=== PATIENT | female | born 1970 | race Caucasian/White ===

== ENCOUNTER 2017-11-19 19:15 | Inpatient (IN) | payer MEDICAID ==
[~2017-11-19] VITALS: Ht 153 cm; Wt 93.1 kg
[~2017-11-19 19:15] MED LIST: ALB0.5UD IH; ALBU8HFA PO; ATOR40TA PO; ATOR40TA72 PO; CLON0.1T20 PO; ESCI10TA PO; ESCI20TA38 PO; INSU100V36 SQ; LANTUS SUBCUT; METR500T PO; SITA100T11 PO; SITA100T15 PO; VALS40TA2 PO
[2017-11-19] MEDS ORDERED: aspirin 81mg tab.chew PO ONE (19:25)
[2017-11-19] MEDS ORDERED: nitroGLYCERIN 0.4mg SUBLingual tab SL PRN (19:25)
[2017-11-19] MEDS ORDERED: nitroGLYCERIN 1gm ointment UD TP ONE (20:00)
[2017-11-19] MEDS ORDERED: VARE0.5T PO (20:55)
[2017-11-19] MEDS ORDERED: NORT10CA81 PO (20:55)
[2017-11-19] MEDS ORDERED: OMEP20CA10 PO (20:55)
[2017-11-19] MEDS ORDERED: LINA5TAB4 PO (20:55)
[2017-11-19] MEDS ORDERED: GLIP5TAB13 PO (20:55)
[2017-11-19] MEDS ORDERED: INSU100I31 (20:55)
[2017-11-19] MEDS ORDERED: LOSA25TA96 PO (20:55)
[2017-11-19] MEDS ORDERED: normal saline 1000ml 1,000 ML IV SCH (21:26)
[2017-11-19 21:30] LABS: BASOPHILS # (AUTO) 0.1 X10'3 (0-0.2); BASOPHILS % (AUTO) 0.4 % (0-1); EOSINOPHILS # (AUTO) 1.2 X10'3 (0-0.9); EOSINOPHILS % (AUTO) 10.1 % (0-6); HEMATOCRIT 36.4 % (35.0-45.0); HEMOGLOBIN 12.4 g/dl (12.0-16.0); LYMPHOCYTES # (AUTO) 3.7 X10'3 (1.1-4.8); MEAN CORPUSCULAR HEMOGLOBIN 29.9 PG (27.0-31.0); MEAN CORPUSCULAR HGB CONC 34.1 % (33.0-36.5); MEAN CORPUSCULAR VOLUME 87.6 FL (78-98); MEAN PLATELET VOLUME 7.4 FL (7.4-10.4); MONOCYTES # (AUTO) 0.7 X10'3 (0-0.9); MONOCYTES % (AUTO) 5.6 % (2-12); NEUTROPHILS # (AUTO) 6.6 X10'3 (1.8-7.7); NEUTROPHILS % (AUTO) 53.9 % (42-75); PLATELET COUNT 295 X10'3 (140-440); RED BLOOD COUNT 4.15 X10'6 (4.20-5.60); RED CELL DISTRIBUTION WIDTH 13.2 % (11.5-14.5); WHITE BLOOD COUNT 12.2 X10'3 (4.5-11.0)
[2017-11-19] MEDS ORDERED: diphenhydrAMINE 25mg capsule PO PRN (21:30)
[2017-11-19] MEDS ORDERED: mag hydrox/Alum hydrox/simeth 30ml oral suspension PO PRN (21:30)
[2017-11-19] MEDS: varenicline tartrate 0.5mg tablet PO SCH (21:30)
[2017-11-19] MEDS ORDERED: diphenhydrAMINE 50 mg/ml inj IV PRN (21:30)
[2017-11-19] MEDS ORDERED: magnesium hydroxide 30ml (MOM) UD suspension PO PRN (21:30)
[2017-11-19] MEDS ORDERED: bisacodyl 10mg suppository rectal RC PRN (21:30)
[2017-11-19] MEDS ORDERED: acetaminophen 325mg tablet PO PRN (21:30)
[2017-11-19] MEDS ORDERED: acetaminophen 650mg rectal suppository RC PRN (21:30)
[2017-11-19] MEDS ORDERED: HYDROcodone/acetaminophen 5mg/325mg tablet PO PRN (21:30)
[2017-11-19] MEDS ORDERED: morphine sulfate 8 MG/ML SYRINGE IV PRN (21:30)
[2017-11-19] MEDS: HYDROcodone/acetaminophen 10/325mg tab PO PRN (21:46)
[2017-11-19 21:47] LABS: ALANINE AMINOTRANSFERASE 21 U/L (12-78); ALBUMIN 2.9 G/DL (3.4-5.0); ALBUMIN/GLOBULIN RATIO 0.7 (1.1-1.5); ALKALINE PHOSPHATASE 92 IU/L (46-116); ANION GAP 8 (8-16); ASPARTATE AMINO TRANSFERASE 16 U/L (10-37); BILIRUBIN,TOTAL 0.3 MG/DL (0.1-1.0); BLOOD UREA NITROGEN 33 MG/DL (7-18); BUN/CREATININE RATIO 21.3 (6.6-38.0); CALCIUM 9.5 MG/DL (8.5-10.1); CHLORIDE 106 MMOL/L (99-107); CREATININE 1.55 MG/DL (0.40-0.90); D-DIMER 3.29 MG/L FEU (0-0.50); GLUCOSE 139 MG/DL (70-104); INR 0.9 INR; PARTIAL THROMBOPLASTIN TIME 25 SECONDS (22-32); POTASSIUM 5.2 MMOL/L (3.5-5.1); PROTHROMBIN TIME 9.5 SECONDS (9.0-12.0); SODIUM 140 MMOL/L (135-145); TOTAL CARBON DIOXIDE 25.8 MMOL/L (24-32); TOTAL PROTEIN 6.9 G/DL (6.4-8.2); eGFR 36 ML/MIN
[2017-11-19 21:56] LABS: LIPASE 92 U/L (73-393)
[2017-11-19] MEDS: morphine sulfate 8 MG/ML SYRINGE IV PRN (22:40)
[2017-11-19] MEDS: atorvastatin 20mg tablet PO SCH (22:41)
[2017-11-19 22:45] VITALS: BP 181/85
[2017-11-19 22:53] LABS: CLARITY,URINE CLEAR (Clear); COLOR,URINE STRAW (Yellow); GLUCOSE, URINE 100 mg/dl (Neg); KETONES,URINE NEGATIVE (Neg); LEUKOCYTE ESTERASE ,URINE NEGATIVE (Neg); NITRITES, URINE NEGATIVE (Neg); OCCULT BLOOD,URINE SMALL (Neg); PROTEIN,URINE >=300 mg/dl (Neg); UROBILINOGEN,URINE 0.2 E.U/dL (0.2-1.0)
[2017-11-19 23:00] VITALS: BP 200/107
[2017-11-19 23:01] LABS: UA COLLECTION TYPE CLN CATCH MIDSTREAM
[2017-11-19 23:02] LABS: SQUAMOUS EPITHELIAL CELL,UR MANY /LPF (FEW)
[2017-11-19 23:04] LABS: HYALINE CASTS 0-3 /LPF (NEGATIVE)
[2017-11-19] MEDS ORDERED: cloNIDine 0.1 mg tablet PO ONE (23:05)
[2017-11-19] MEDS ORDERED: losartan 50mg tablet PO ONE (23:05)
[2017-11-19 23:07] LABS: AMORPHOUS URATES 1+; BACTERIA,URINE 2+ /HPF (Neg); RBC,URINE 0-2 /HPF (0-2); WBC,URINE 0-4 /HPF (0-4)
[2017-11-20] MEDS ORDERED: heparin, porcine 5000 units/ml vial SQ SCH
[2017-11-20] MEDS: morphine sulfate 8 MG/ML SYRINGE IV PRN (02:22)
[2017-11-20 03:07] VITALS: BP 154/79
[2017-11-20 04:22] LABS: BASOPHILS % (AUTO) 0.5 % (0-1); EOSINOPHILS # (AUTO) 1.1 X10'3 (0-0.9); EOSINOPHILS % (AUTO) 11.4 % (0-6); HEMATOCRIT 31.7 % (35.0-45.0); HEMOGLOBIN 10.7 g/dl (12.0-16.0); LYMPHOCYTES # (AUTO) 3.1 X10'3 (1.1-4.8); LYMPHOCYTES % (AUTO) 32.5 % (21-51); MEAN CORPUSCULAR HEMOGLOBIN 29.7 PG (27.0-31.0); MEAN CORPUSCULAR HGB CONC 33.8 % (33.0-36.5); MEAN PLATELET VOLUME 7.5 FL (7.4-10.4); MONOCYTES # (AUTO) 0.6 X10'3 (0-0.9); NEUTROPHILS # (AUTO) 4.7 X10'3 (1.8-7.7); NEUTROPHILS % (AUTO) 49.6 % (42-75); PLATELET COUNT 280 X10'3 (140-440); RED CELL DISTRIBUTION WIDTH 12.9 % (11.5-14.5); WHITE BLOOD COUNT 9.5 X10'3 (4.5-11.0)
[2017-11-20 04:37] LABS: ALANINE AMINOTRANSFERASE 17 U/L (12-78); ALBUMIN 2.6 G/DL (3.4-5.0); ALBUMIN/GLOBULIN RATIO 0.7 (1.1-1.5); ALKALINE PHOSPHATASE 87 IU/L (46-116); ANION GAP 8 (8-16); ASPARTATE AMINO TRANSFERASE 12 U/L (10-37); BILIRUBIN,TOTAL 0.4 MG/DL (0.1-1.0); BLOOD UREA NITROGEN 33 MG/DL (7-18); BUN/CREATININE RATIO 21.7 (6.6-38.0); CHLORIDE 107 MMOL/L (99-107); CREATININE 1.52 MG/DL (0.40-0.90); GLUCOSE 153 MG/DL (70-104); POTASSIUM 4.9 MMOL/L (3.5-5.1); SODIUM 140 MMOL/L (135-145); TOTAL CARBON DIOXIDE 25.3 MMOL/L (24-32); TOTAL PROTEIN 6.1 G/DL (6.4-8.2); eGFR 37 ML/MIN
[2017-11-20 04:45] LABS: CHOL/HDL RATIO 3.3 (0.00-4.99); CHOLESTEROL 197 MG/DL (0-200); HDL CHOLESTEROL 60 MG/DL (35-60); LDL CHOLESTEROL 106 MG/DL (50-100); TRIGLYCERIDES 235 MG/DL (20-135)
[2017-11-20] MEDS: metoclopramide 5 mg/ml inj IV PRN (04:57)
[2017-11-20] MEDS: HYDROcodone/acetaminophen 10/325mg tab PO PRN (04:57)
[2017-11-20] MEDS ORDERED: aminophylline 250mg/10ml inj. IV PRN (05:45)
[2017-11-20] MEDS ORDERED: metoprolol tartrate 1mg/ml inj IV PRN (05:45)
[2017-11-20] MEDS ORDERED: regadenoson 0.4mg/5ml syringe IV ONE (05:45)
[2017-11-20] MEDS ORDERED: nitroGLYCERIN 0.4mg SUBLingual tab SL PRN (05:45)
[2017-11-20 06:00] VITALS: BP 169/75
[2017-11-20] MEDS: citalopram 20mg tablet PO SCH (07:31)
[2017-11-20] MEDS: aspirin 81mg tab.chew PO SCH (07:32)
[2017-11-20] MEDS: metoprolol tartrate 12.5mg (1/2 tablet) PO SCH ×2 (07:32→20:55)
[2017-11-20] MEDS: losartan 25mg tablet PO SCH (07:32)
[2017-11-20] MEDS: pantoprazole 40mg Tablet.DR PO SCH (07:33)
[2017-11-20] MEDS: nortriptyline 10mg capsule PO SCH (07:33)
[2017-11-20] MEDS: cloNIDine 0.1 mg tablet PO SCH ×2 (07:34→20:55)
[2017-11-20] MEDS: varenicline tartrate 0.5mg tablet PO SCH ×2 (07:34→20:55)
[2017-11-20] MEDS: nitroGLYCERIN 0.2mg/hour patch TD SCH (07:35)
[2017-11-20] MEDS ORDERED: enoxaparin 80mg/0.8ml syringe SUBCUT SCH (08:00)
[2017-11-20 11:00] VITALS: BP 153/80
[2017-11-20] MEDS ORDERED: MESSAGE TO PHARMACY PO ONE (13:05)
[2017-11-20] MEDS ORDERED: dextrose 50%-water 50ml dispensing syringe IV PRN ×2 (13:05)
[2017-11-20] MEDS ORDERED: glucagon, human recombinant 1mg kit SUBCUT PRN (13:05)
[2017-11-20] MEDS ORDERED: dextrose ORAL solution 15 GM/59 ML bottle PO PRN ×2 (13:05)
[2017-11-20 15:00] VITALS: BP 153/95
[2017-11-20] MEDS: normal saline 1000ml 1,000 ML IV SCH (17:44)
[2017-11-20 18:00] VITALS: BP 177/56
[2017-11-20] MEDS: insulin Lispro (HumaLOG) vial - multi-dose SQ SCH ×2 (19:07→21:02)
[2017-11-20] MEDS: atorvastatin 20mg tablet PO SCH (20:55)
[2017-11-20] MEDS: Insulin Detemir pen SQ SCH (21:01)
[2017-11-20 22:00] VITALS: BP 151/70
[2017-11-21 02:00] VITALS: BP 166/53
[2017-11-21] MEDS: normal saline 1000ml 1,000 ML IV SCH ×2 (03:49→17:01)
[2017-11-21 06:00] VITALS: BP 181/78
[2017-11-21] MEDS: enoxaparin 40mg/0.4ml syringe SUBCUT SCH (06:24)
[2017-11-21 06:36] LABS: BASOPHILS % (AUTO) 0.6 % (0-1); EOSINOPHILS # (AUTO) 0.9 X10'3 (0-0.9); EOSINOPHILS % (AUTO) 12.2 % (0-6); HEMATOCRIT 32.2 % (35.0-45.0); HEMOGLOBIN 10.9 g/dl (12.0-16.0); LYMPHOCYTES # (AUTO) 2.6 X10'3 (1.1-4.8); LYMPHOCYTES % (AUTO) 34.6 % (21-51); MEAN CORPUSCULAR HEMOGLOBIN 29.5 PG (27.0-31.0); MEAN CORPUSCULAR HGB CONC 33.7 % (33.0-36.5); MEAN CORPUSCULAR VOLUME 87.6 FL (78-98); MEAN PLATELET VOLUME 7.4 FL (7.4-10.4); MONOCYTES # (AUTO) 0.5 X10'3 (0-0.9); NEUTROPHILS # (AUTO) 3.5 X10'3 (1.8-7.7); NEUTROPHILS % (AUTO) 46.6 % (42-75); PLATELET COUNT 253 X10'3 (140-440); RED BLOOD COUNT 3.68 X10'6 (4.20-5.60); RED CELL DISTRIBUTION WIDTH 12.8 % (11.5-14.5); WHITE BLOOD COUNT 7.5 X10'3 (4.5-11.0)
[2017-11-21] MEDS: metoprolol tartrate 12.5mg (1/2 tablet) PO SCH ×2 (07:14→20:03)
[2017-11-21] MEDS: citalopram 20mg tablet PO SCH (07:14)
[2017-11-21] MEDS: varenicline tartrate 0.5mg tablet PO SCH ×2 (07:15→20:03)
[2017-11-21] MEDS: nortriptyline 10mg capsule PO SCH (07:15)
[2017-11-21] MEDS: losartan 25mg tablet PO SCH (07:15)
[2017-11-21] MEDS: aspirin 81mg tab.chew PO SCH (07:15)
[2017-11-21] MEDS: cloNIDine 0.1 mg tablet PO SCH ×2 (07:15→20:03)
[2017-11-21] MEDS: pantoprazole 40mg Tablet.DR PO SCH (07:16)
[2017-11-21] MEDS: nitroGLYCERIN 0.2mg/hour patch TD SCH (07:20)
[2017-11-21 07:26] LABS: ALANINE AMINOTRANSFERASE 17 U/L (12-78); ALBUMIN 2.4 G/DL (3.4-5.0); ALBUMIN/GLOBULIN RATIO 0.7 (1.1-1.5); ALKALINE PHOSPHATASE 89 IU/L (46-116); ANION GAP 6 (8-16); ASPARTATE AMINO TRANSFERASE 12 U/L (10-37); BILIRUBIN,TOTAL 0.4 MG/DL (0.1-1.0); BLOOD UREA NITROGEN 35 MG/DL (7-18); BUN/CREATININE RATIO 23.5 (6.6-38.0); CALCIUM 8.8 MG/DL (8.5-10.1); CHLORIDE 106 MMOL/L (99-107); CREATININE 1.49 MG/DL (0.40-0.90); GLUCOSE 221 MG/DL (70-104); POTASSIUM 5.4 MMOL/L (3.5-5.1); SODIUM 137 MMOL/L (135-145); TOTAL CARBON DIOXIDE 25.1 MMOL/L (24-32); eGFR 38 ML/MIN
[2017-11-21] MEDS: insulin Lispro (HumaLOG) vial - multi-dose SQ SCH ×4 (08:34→20:24)
[2017-11-21 09:14] LABS: BASOPHILS % (AUTO) 0.1 % (0-1); EOSINOPHILS # (AUTO) 1.1 X10'3 (0-0.9); EOSINOPHILS % (AUTO) 13.7 % (0-6); HEMOGLOBIN 10.7 g/dl (12.0-16.0); LYMPHOCYTES # (AUTO) 2.3 X10'3 (1.1-4.8); LYMPHOCYTES % (AUTO) 30.5 % (21-51); MEAN CORPUSCULAR HEMOGLOBIN 29.4 PG (27.0-31.0); MEAN CORPUSCULAR HGB CONC 33.6 % (33.0-36.5); MEAN CORPUSCULAR VOLUME 87.4 FL (78-98); MEAN PLATELET VOLUME 7.7 FL (7.4-10.4); MONOCYTES # (AUTO) 0.4 X10'3 (0-0.9); MONOCYTES % (AUTO) 5.5 % (2-12); NEUTROPHILS # (AUTO) 3.9 X10'3 (1.8-7.7); NEUTROPHILS % (AUTO) 50.2 % (42-75); PLATELET COUNT 261 X10'3 (140-440); RED BLOOD COUNT 3.66 X10'6 (4.20-5.60); RED CELL DISTRIBUTION WIDTH 13.1 % (11.5-14.5); WHITE BLOOD COUNT 7.7 X10'3 (4.5-11.0)
[2017-11-21] MEDS ORDERED: fentaNYL/PF 50MCG/1 ML 2ML syringe IV PRN (09:25)
[2017-11-21] MEDS ORDERED: midazolam 2 mg/2 ml injection IV PRN (09:25)
[2017-11-21] MEDS ORDERED: LIDOcaine 1%/PF (10mg/ml) 5ml vial SQ ONE (09:25)
[2017-11-21 09:33] LABS: ALANINE AMINOTRANSFERASE 13 U/L (12-78); ALBUMIN 2.4 G/DL (3.4-5.0); ALBUMIN/GLOBULIN RATIO 0.7 (1.1-1.5); ALKALINE PHOSPHATASE 88 IU/L (46-116); ANION GAP -1 (8-16); ASPARTATE AMINO TRANSFERASE 13 U/L (10-37); BILIRUBIN,TOTAL 0.4 MG/DL (0.1-1.0); BLOOD UREA NITROGEN 35 MG/DL (7-18); CALCIUM 8.5 MG/DL (8.5-10.1); CHLORIDE 105 MMOL/L (99-107); CREATININE 1.46 MG/DL (0.40-0.90); GLUCOSE 240 MG/DL (70-104); POTASSIUM 5.3 MMOL/L (3.5-5.1); SODIUM 130 MMOL/L (135-145); TOTAL CARBON DIOXIDE 25.5 MMOL/L (24-32); TOTAL PROTEIN 5.9 G/DL (6.4-8.2); eGFR 39 ML/MIN
[2017-11-21] MEDS ORDERED: pneumococcal 23-VAL P-sac vacc 25 mcg/0.5ml vial IMVAC ONE (10:00)
[2017-11-21 11:00] VITALS: BP 156/73
[2017-11-21 15:00] VITALS: BP 137/70
[2017-11-21] MEDS ORDERED: sodium chloride 0.45% 1,000 ML IV SCH (16:35)
[2017-11-21 18:00] VITALS: BP 165/78
[2017-11-21] MEDS: HYDROcodone/acetaminophen 10/325mg tab PO PRN (19:08)
[2017-11-21] MEDS: atorvastatin 20mg tablet PO SCH (20:03)
[2017-11-21] MEDS: Insulin Detemir pen SQ SCH (20:25)
[2017-11-21 22:00] VITALS: BP 180/86
[2017-11-21] MEDS: morphine sulfate 8 MG/ML SYRINGE IV PRN (23:04)
[2017-11-21] MEDS: hydrALAZINE 20mg/ml inj. IV PRN (23:54)
[2017-11-22] VITALS (19 sets, daily range): BP systolic 142–186; BP diastolic 62–89
[2017-11-22] MEDS: normal saline 1000ml 1,000 ML IV SCH ×3 (02:58→23:04)
[2017-11-22] MEDS: ondansetron/PF 4mg/2ml inj IV PRN (03:01)
[2017-11-22] MEDS: acetaminophen 325mg tablet PO PRN (04:55)
[2017-11-22] MEDS: hydrALAZINE 20mg/ml inj. IV PRN ×2 (05:43→16:38)
[2017-11-22 06:09] LABS: BASOPHILS % (AUTO) 0 % (0-1); EOSINOPHILS # (AUTO) 1.2 X10'3 (0-0.9); EOSINOPHILS % (AUTO) 9.7 % (0-6); HEMATOCRIT 32.7 % (35.0-45.0); HEMOGLOBIN 11.1 g/dl (12.0-16.0); LYMPHOCYTES # (AUTO) 2.3 X10'3 (1.1-4.8); LYMPHOCYTES % (AUTO) 19.2 % (21-51); MEAN CORPUSCULAR HEMOGLOBIN 29.6 PG (27.0-31.0); MEAN CORPUSCULAR HGB CONC 33.9 % (33.0-36.5); MEAN CORPUSCULAR VOLUME 87.4 FL (78-98); MEAN PLATELET VOLUME 7.7 FL (7.4-10.4); MONOCYTES # (AUTO) 0.7 X10'3 (0-0.9); MONOCYTES % (AUTO) 5.6 % (2-12); NEUTROPHILS # (AUTO) 7.9 X10'3 (1.8-7.7); NEUTROPHILS % (AUTO) 65.5 % (42-75); PLATELET COUNT 260 X10'3 (140-440); RED BLOOD COUNT 3.75 X10'6 (4.20-5.60); RED CELL DISTRIBUTION WIDTH 13.1 % (11.5-14.5)
[2017-11-22 06:29] LABS: ALANINE AMINOTRANSFERASE 26 U/L (12-78); ALBUMIN 2.5 G/DL (3.4-5.0); ALBUMIN/GLOBULIN RATIO 0.7 (1.1-1.5); ALKALINE PHOSPHATASE 85 IU/L (46-116); ANION GAP 10 (8-16); ASPARTATE AMINO TRANSFERASE 26 U/L (10-37); BILIRUBIN,TOTAL 0.3 MG/DL (0.1-1.0); BLOOD UREA NITROGEN 30 MG/DL (7-18); CALCIUM 8.5 MG/DL (8.5-10.1); CHLORIDE 105 MMOL/L (99-107); CREATININE 1.43 MG/DL (0.40-0.90); GLUCOSE 185 MG/DL (70-104); POTASSIUM 4.4 MMOL/L (3.5-5.1); SODIUM 138 MMOL/L (135-145); TOTAL CARBON DIOXIDE 23.5 MMOL/L (24-32); TOTAL PROTEIN 6.2 G/DL (6.4-8.2); eGFR 40 ML/MIN
[2017-11-22] MEDS: metoclopramide 5 mg/ml inj IV PRN (06:31)
[2017-11-22] MEDS: morphine sulfate 8 MG/ML SYRINGE IV PRN (06:44)
[2017-11-22] MEDS: metoprolol tartrate 12.5mg (1/2 tablet) PO SCH ×2 (07:48→20:25)
[2017-11-22] MEDS: nitroGLYCERIN 0.2mg/hour patch TD SCH (07:48)
[2017-11-22] MEDS: cloNIDine 0.1 mg tablet PO SCH ×2 (07:49→20:25)
[2017-11-22] MEDS: losartan 25mg tablet PO SCH (07:49)
[2017-11-22] MEDS: aspirin 81mg tab.chew PO SCH (07:49)
[2017-11-22] MEDS: enoxaparin 40mg/0.4ml syringe SUBCUT SCH (07:50)
[2017-11-22] MEDS: insulin Lispro (HumaLOG) vial - multi-dose SQ SCH ×3 (07:55→18:46)
[2017-11-22] MEDS: nortriptyline 10mg capsule PO SCH (11:54)
[2017-11-22] MEDS: varenicline tartrate 0.5mg tablet PO SCH ×2 (11:55→20:24)
[2017-11-22] MEDS: pantoprazole 40mg Tablet.DR PO SCH (11:55)
[2017-11-22] MEDS: citalopram 20mg tablet PO SCH (11:55)
[2017-11-22] MEDS ORDERED: iohexol 350 MG/ML 50ML vial IV ONE (13:35)
[2017-11-22] MEDS ORDERED: iohexol 350 MG/1 ML 200ml bottle ONE (13:35)
[2017-11-22] MEDS ORDERED: LIDOcaine 1%/PF (10mg/ml) 5ml vial ONE (13:35)
[2017-11-22] MEDS ORDERED: heparin 1,000unit/ml 10ml vial 10 ML ONE (13:44)
[2017-11-22] MEDS ORDERED: diphenhydrAMINE 50 mg/ml inj ONE (14:02)
[2017-11-22] MEDS ORDERED: fentaNYL/PF 50MCG/1 ML 2ML syringe ONE (14:03)
[2017-11-22] MEDS ORDERED: midazolam 2 mg/2 ml injection ONE (14:03)
[2017-11-22] MEDS ORDERED: nitroGLYCERIN-Tridil 50MG/D5W 250 ML IV ONE (14:29)
[2017-11-22] MEDS ORDERED: proCHLORperazine 10 MG/2 ml inj IV PRN (15:05)
[2017-11-22] MEDS ORDERED: OXAZEpam 15mg capsule PO PRN (15:05)
[2017-11-22] MEDS: atorvastatin 20mg tablet PO SCH (20:25)
[2017-11-22] MEDS: Insulin Detemir pen SQ SCH (21:07)
[2017-11-22] MEDS: HYDROcodone/acetaminophen 10/325mg tab PO PRN (23:04)
[2017-11-23 02:00] VITALS: BP 147/78
[2017-11-23 06:00] VITALS: BP 134/65
[2017-11-23 06:06] LABS: BASOPHILS # (AUTO) 0.2 X10'3 (0-0.2); BASOPHILS % (AUTO) 1.7 % (0-1); EOSINOPHILS # (AUTO) 0.9 X10'3 (0-0.9); EOSINOPHILS % (AUTO) 9.9 % (0-6); HEMATOCRIT 29.7 % (35.0-45.0); HEMOGLOBIN 9.9 g/dl (12.0-16.0); LYMPHOCYTES # (AUTO) 2.4 X10'3 (1.1-4.8); LYMPHOCYTES % (AUTO) 24.9 % (21-51); MEAN CORPUSCULAR HEMOGLOBIN 29.3 PG (27.0-31.0); MEAN CORPUSCULAR HGB CONC 33.3 % (33.0-36.5); MONOCYTES # (AUTO) 0.7 X10'3 (0-0.9); MONOCYTES % (AUTO) 7.3 % (2-12); NEUTROPHILS # (AUTO) 5.3 X10'3 (1.8-7.7); NEUTROPHILS % (AUTO) 56.2 % (42-75); PLATELET COUNT 244 X10'3 (140-440); RED BLOOD COUNT 3.38 X10'6 (4.20-5.60); RED CELL DISTRIBUTION WIDTH 13.1 % (11.5-14.5); WHITE BLOOD COUNT 9.5 X10'3 (4.5-11.0)
[2017-11-23 06:28] LABS: ALANINE AMINOTRANSFERASE 26 U/L (12-78); ALBUMIN 2.2 G/DL (3.4-5.0); ALBUMIN/GLOBULIN RATIO 0.6 (1.1-1.5); ALKALINE PHOSPHATASE 74 IU/L (46-116); ANION GAP 10 (8-16); ASPARTATE AMINO TRANSFERASE 22 U/L (10-37); BILIRUBIN,TOTAL 0.3 MG/DL (0.1-1.0); BLOOD UREA NITROGEN 29 MG/DL (7-18); BUN/CREATININE RATIO 17.8 (6.6-38.0); CALCIUM 8.4 MG/DL (8.5-10.1); CHLORIDE 109 MMOL/L (99-107); CREATININE 1.63 MG/DL (0.40-0.90); GLUCOSE 138 MG/DL (70-104); POTASSIUM 4.5 MMOL/L (3.5-5.1); SODIUM 140 MMOL/L (135-145); TOTAL CARBON DIOXIDE 21.3 MMOL/L (24-32); TOTAL PROTEIN 5.6 G/DL (6.4-8.2); eGFR 34 ML/MIN
[2017-11-23] MEDS: citalopram 20mg tablet PO SCH (08:12)
[2017-11-23] MEDS: pantoprazole 40mg Tablet.DR PO SCH (08:12)
[2017-11-23] MEDS: cloNIDine 0.1 mg tablet PO SCH ×2 (08:12→19:55)
[2017-11-23] MEDS: aspirin 81mg tab.chew PO SCH (08:12)
[2017-11-23] MEDS: metoprolol tartrate 12.5mg (1/2 tablet) PO SCH ×2 (08:13→19:54)
[2017-11-23] MEDS: losartan 25mg tablet PO SCH (08:13)
[2017-11-23] MEDS: nortriptyline 10mg capsule PO SCH (08:13)
[2017-11-23] MEDS: varenicline tartrate 0.5mg tablet PO SCH ×2 (08:13→19:54)
[2017-11-23] MEDS: enoxaparin 40mg/0.4ml syringe SUBCUT SCH (08:14)
[2017-11-23] MEDS: nitroGLYCERIN 0.2mg/hour patch TD SCH (08:14)
[2017-11-23] MEDS: insulin Lispro (HumaLOG) vial - multi-dose SQ SCH ×3 (08:26→18:50)
[2017-11-23] MEDS: normal saline 1000ml 1,000 ML IV SCH (08:40)
[2017-11-23 11:00] VITALS: BP 128/70
[2017-11-23 15:00] VITALS: BP 160/88
[2017-11-23] MEDS: acetaminophen 325mg tablet PO PRN (15:17)
[2017-11-23 19:00] VITALS: BP 151/68
[2017-11-23] MEDS: atorvastatin 20mg tablet PO SCH (19:54)
[2017-11-23] MEDS: temazepam 15mg capsule PO PRN (21:35)
[2017-11-23] MEDS: Insulin Detemir pen SQ SCH (21:36)
[2017-11-23 23:00] VITALS: BP 152/75
[2017-11-24 03:00] VITALS: BP 174/75
[2017-11-24] MEDS: hydrALAZINE 20mg/ml inj. IV PRN ×2 (04:57→23:22)
[2017-11-24 05:49] LABS: BASOPHILS # (AUTO) 0.1 X10'3 (0-0.2); BASOPHILS % (AUTO) 0.5 % (0-1); EOSINOPHILS % (AUTO) 10.9 % (0-6); HEMATOCRIT 28.6 % (35.0-45.0); HEMOGLOBIN 9.5 g/dl (12.0-16.0); LYMPHOCYTES # (AUTO) 2.7 X10'3 (1.1-4.8); MEAN CORPUSCULAR HEMOGLOBIN 29.4 PG (27.0-31.0); MEAN CORPUSCULAR HGB CONC 33.2 % (33.0-36.5); MEAN CORPUSCULAR VOLUME 88.6 FL (78-98); MEAN PLATELET VOLUME 7.5 FL (7.4-10.4); MONOCYTES # (AUTO) 0.7 X10'3 (0-0.9); MONOCYTES % (AUTO) 7.2 % (2-12); NEUTROPHILS # (AUTO) 5.1 X10'3 (1.8-7.7); NEUTROPHILS % (AUTO) 53.4 % (42-75); PLATELET COUNT 229 X10'3 (140-440); RED BLOOD COUNT 3.23 X10'6 (4.20-5.60); WHITE BLOOD COUNT 9.6 X10'3 (4.5-11.0)
[2017-11-24 06:00] VITALS: BP 178/64
[2017-11-24 06:20] LABS: ALANINE AMINOTRANSFERASE 21 U/L (12-78); ALBUMIN 2.2 G/DL (3.4-5.0); ALBUMIN/GLOBULIN RATIO 0.6 (1.1-1.5); ALKALINE PHOSPHATASE 69 IU/L (46-116); ANION GAP 11 (8-16); ASPARTATE AMINO TRANSFERASE 12 U/L (10-37); BILIRUBIN,TOTAL 0.2 MG/DL (0.1-1.0); BLOOD UREA NITROGEN 41 MG/DL (7-18); BUN/CREATININE RATIO 15.7 (6.6-38.0); CALCIUM 8.3 MG/DL (8.5-10.1); CHLORIDE 103 MMOL/L (99-107); CREATININE 2.61 MG/DL (0.40-0.90); GLUCOSE 160 MG/DL (70-104); POTASSIUM 4.8 MMOL/L (3.5-5.1); SODIUM 134 MMOL/L (135-145); TOTAL CARBON DIOXIDE 20.2 MMOL/L (24-32); TOTAL PROTEIN 5.7 G/DL (6.4-8.2); eGFR 20 ML/MIN
[2017-11-24] MEDS: pantoprazole 40mg Tablet.DR PO SCH (07:00)
[2017-11-24] MEDS: citalopram 20mg tablet PO SCH (07:58)
[2017-11-24] MEDS: cloNIDine 0.1 mg tablet PO SCH ×2 (07:58→19:33)
[2017-11-24] MEDS: nortriptyline 10mg capsule PO SCH (07:58)
[2017-11-24] MEDS: aspirin 81mg tab.chew PO SCH (07:58)
[2017-11-24] MEDS: metoprolol tartrate 12.5mg (1/2 tablet) PO SCH ×2 (07:58→19:33)
[2017-11-24] MEDS: enoxaparin 40mg/0.4ml syringe SUBCUT SCH (08:00)
[2017-11-24] MEDS: losartan 25mg tablet PO SCH (08:00)
[2017-11-24] MEDS: nitroGLYCERIN 0.2mg/hour patch TD SCH (08:00)
[2017-11-24] MEDS: varenicline tartrate 0.5mg tablet PO SCH ×2 (08:00→19:33)
[2017-11-24] MEDS: insulin Lispro (HumaLOG) vial - multi-dose SQ SCH ×3 (09:47→20:57)
[2017-11-24] MEDS: normal saline 1000ml 1,000 ML IV SCH (16:13)
[2017-11-24] MEDS: acetaminophen 325mg tablet PO PRN (18:44)
[2017-11-24 19:00] VITALS: BP 173/88
[2017-11-24] MEDS: atorvastatin 20mg tablet PO SCH (19:33)
[2017-11-24] MEDS: Insulin Detemir pen SQ SCH (20:56)
[2017-11-24 23:17] VITALS: BP 172/72
[2017-11-25 03:00] VITALS: BP 159/82
[2017-11-25] MEDS: normal saline 1000ml 1,000 ML IV SCH ×4 (04:30→23:53)
[2017-11-25 06:00] VITALS: BP 186/83
[2017-11-25 06:33] LABS: CREATININE,URINE RANDOM 14.4 MG/DL
[2017-11-25 06:57] LABS: CLARITY,URINE CLEAR (Clear); COLOR,URINE STRAW (Yellow); GLUCOSE, URINE 100 mg/dl (Neg); KETONES,URINE NEGATIVE (Neg); LEUKOCYTE ESTERASE ,URINE NEGATIVE (Neg); NITRITES, URINE NEGATIVE (Neg); OCCULT BLOOD,URINE TRACE-INTACT (Neg); PROTEIN,URINE 100 mg/dl (Neg); UROBILINOGEN,URINE 0.2 E.U/dL (0.2-1.0)
[2017-11-25 07:02] LABS: UA COLLECTION TYPE CLN CATCH MIDSTREAM
[2017-11-25 07:27] LABS: SQUAMOUS EPITHELIAL CELL,UR FEW /LPF (FEW)
[2017-11-25 07:28] LABS: BACTERIA,URINE 1+ /HPF (Neg); RBC,URINE 0-2 /HPF (0-2); WBC,URINE NONE SEEN /HPF (0-4)
[2017-11-25] MEDS: metoprolol tartrate 12.5mg (1/2 tablet) PO SCH ×2 (07:49→20:26)
[2017-11-25] MEDS: aspirin 81mg tab.chew PO SCH (07:49)
[2017-11-25] MEDS: losartan 25mg tablet PO SCH (07:49)
[2017-11-25] MEDS: varenicline tartrate 0.5mg tablet PO SCH ×2 (07:49→20:26)
[2017-11-25] MEDS: cloNIDine 0.1 mg tablet PO SCH ×2 (07:49→20:26)
[2017-11-25] MEDS: nortriptyline 10mg capsule PO SCH (07:49)
[2017-11-25] MEDS: citalopram 20mg tablet PO SCH (07:49)
[2017-11-25] MEDS: enoxaparin 30mg/0.3ml syringe SUBCUT SCH (07:50)
[2017-11-25] MEDS: nitroGLYCERIN 0.2mg/hour patch TD SCH (07:52)
[2017-11-25] MEDS: ondansetron/PF 4mg/2ml inj IV PRN (08:10)
[2017-11-25 08:19] LABS: UA EOSINOPHILS NO EOS /HPF
[2017-11-25] MEDS: insulin Lispro (HumaLOG) vial - multi-dose SQ SCH ×2 (09:12→13:19)
[2017-11-25 11:00] VITALS: BP 131/60
[2017-11-25 11:41] LABS: BASOPHILS % (AUTO) 0.6 % (0-1); EOSINOPHILS # (AUTO) 0.9 X10'3 (0-0.9); EOSINOPHILS % (AUTO) 11.8 % (0-6); HEMATOCRIT 26.3 % (35.0-45.0); HEMOGLOBIN 8.9 g/dl (12.0-16.0); LYMPHOCYTES # (AUTO) 1.7 X10'3 (1.1-4.8); LYMPHOCYTES % (AUTO) 21.2 % (21-51); MEAN CORPUSCULAR HEMOGLOBIN 29.5 PG (27.0-31.0); MEAN CORPUSCULAR HGB CONC 33.8 % (33.0-36.5); MEAN CORPUSCULAR VOLUME 87.3 FL (78-98); MEAN PLATELET VOLUME 7.3 FL (7.4-10.4); MONOCYTES # (AUTO) 0.4 X10'3 (0-0.9); MONOCYTES % (AUTO) 5.2 % (2-12); NEUTROPHILS # (AUTO) 4.9 X10'3 (1.8-7.7); NEUTROPHILS % (AUTO) 61.2 % (42-75); PLATELET COUNT 232 X10'3 (140-440); RED BLOOD COUNT 3.01 X10'6 (4.20-5.60)
[2017-11-25] MEDS: amLODIPine 5mg tablet PO SCH (11:48)
[2017-11-25 11:57] LABS: ALANINE AMINOTRANSFERASE 18 U/L (12-78); ALBUMIN/GLOBULIN RATIO 0.6 (1.1-1.5); ALKALINE PHOSPHATASE 64 IU/L (46-116); ANION GAP 9 (8-16); ASPARTATE AMINO TRANSFERASE 10 U/L (10-37); BILIRUBIN,TOTAL 0.2 MG/DL (0.1-1.0); BLOOD UREA NITROGEN 45 MG/DL (7-18); BUN/CREATININE RATIO 15.3 (6.6-38.0); CHLORIDE 106 MMOL/L (99-107); CREATININE 2.94 MG/DL (0.40-0.90); GLUCOSE 225 MG/DL (70-104); SODIUM 135 MMOL/L (135-145); TOTAL CARBON DIOXIDE 20.1 MMOL/L (24-32); TOTAL PROTEIN 5.3 G/DL (6.4-8.2); eGFR 17 ML/MIN
[2017-11-25 12:04] LABS: MAGNESIUM 1.6 MG/DL (1.5-2.4)
[2017-11-25 15:00] VITALS: BP 153/83
[2017-11-25] MEDS ORDERED: magnesium hydroxide 30ml (MOM) UD suspension PO PRN (17:10)
[2017-11-25 19:00] VITALS: BP 154/79
[2017-11-25] MEDS: HYDROcodone/acetaminophen 10/325mg tab PO PRN (19:07)
[2017-11-25] MEDS: atorvastatin 20mg tablet PO SCH (20:26)
[2017-11-25] MEDS: temazepam 15mg capsule PO PRN (20:31)
[2017-11-25] MEDS: Insulin Detemir pen SQ SCH (20:38)
[2017-11-25 23:21] VITALS: BP 141/75
[2017-11-26] VITALS (23 sets, daily range): BP systolic 154–172; BP diastolic 46–95
[2017-11-26] MEDS: HYDROcodone/acetaminophen 10/325mg tab PO PRN ×3 (00:33→20:34)
[2017-11-26] MEDS: temazepam 15mg capsule PO PRN ×2 (00:33→20:34)
[2017-11-26 06:10] LABS: BASOPHILS # (AUTO) 0.1 X10'3 (0-0.2); BASOPHILS % (AUTO) 0.7 % (0-1); EOSINOPHILS % (AUTO) 12.7 % (0-6); HEMATOCRIT 27.3 % (35.0-45.0); HEMOGLOBIN 9.3 g/dl (12.0-16.0); LYMPHOCYTES # (AUTO) 2.8 X10'3 (1.1-4.8); LYMPHOCYTES % (AUTO) 34.7 % (21-51); MEAN CORPUSCULAR HEMOGLOBIN 29.9 PG (27.0-31.0); MEAN CORPUSCULAR HGB CONC 34.2 % (33.0-36.5); MEAN CORPUSCULAR VOLUME 87.3 FL (78-98); MEAN PLATELET VOLUME 7.9 FL (7.4-10.4); MONOCYTES # (AUTO) 0.4 X10'3 (0-0.9); MONOCYTES % (AUTO) 5.5 % (2-12); NEUTROPHILS # (AUTO) 3.8 X10'3 (1.8-7.7); NEUTROPHILS % (AUTO) 46.4 % (42-75); PLATELET COUNT 217 X10'3 (140-440); RED BLOOD COUNT 3.13 X10'6 (4.20-5.60); RED CELL DISTRIBUTION WIDTH 12.8 % (11.5-14.5); WHITE BLOOD COUNT 8.1 X10'3 (4.5-11.0)
[2017-11-26] MEDS: enoxaparin 30mg/0.3ml syringe SUBCUT SCH (07:04)
[2017-11-26 07:10] LABS: ALANINE AMINOTRANSFERASE 29 U/L (12-78); ALBUMIN 2.3 G/DL (3.4-5.0); ALBUMIN/GLOBULIN RATIO 0.6 (1.1-1.5); ALKALINE PHOSPHATASE 77 IU/L (46-116); ANION GAP 11 (8-16); ASPARTATE AMINO TRANSFERASE 21 U/L (10-37); BILIRUBIN,TOTAL 0.2 MG/DL (0.1-1.0); BLOOD UREA NITROGEN 43 MG/DL (7-18); BUN/CREATININE RATIO 17.2 (6.6-38.0); CALCIUM 8.1 MG/DL (8.5-10.1); CHLORIDE 104 MMOL/L (99-107); GLUCOSE 163 MG/DL (70-104); MAGNESIUM 1.7 MG/DL (1.5-2.4); POTASSIUM 4.8 MMOL/L (3.5-5.1); SODIUM 134 MMOL/L (135-145); TOTAL CARBON DIOXIDE 19.5 MMOL/L (24-32); TOTAL PROTEIN 5.9 G/DL (6.4-8.2); eGFR 21 ML/MIN
[2017-11-26] MEDS: aspirin 81mg tab.chew PO SCH (07:18)
[2017-11-26] MEDS: varenicline tartrate 0.5mg tablet PO SCH ×2 (07:27→20:34)
[2017-11-26] MEDS: metoprolol tartrate 12.5mg (1/2 tablet) PO SCH ×2 (07:27→20:34)
[2017-11-26] MEDS: losartan 25mg tablet PO SCH (07:27)
[2017-11-26] MEDS: amLODIPine 5mg tablet PO SCH (07:27)
[2017-11-26] MEDS: cloNIDine 0.1 mg tablet PO SCH ×2 (07:28→20:34)
[2017-11-26] MEDS: nitroGLYCERIN 0.2mg/hour patch TD SCH (07:28)
[2017-11-26] MEDS: citalopram 20mg tablet PO SCH (07:28)
[2017-11-26] MEDS: insulin Lispro (HumaLOG) vial - multi-dose SQ SCH ×3 (09:16→20:31)
[2017-11-26] MEDS: normal saline 1000ml 1,000 ML IV SCH ×2 (09:18→21:23)
[2017-11-26] MEDS ORDERED: BUPIVAcaine/PF 2.5 mg/ml (0.25%) 30ml vial ONE (10:41)
[2017-11-26] MEDS ORDERED: ceFAZolin 1000mg inj ONE (10:41)
[2017-11-26] MEDS: nortriptyline 10mg capsule PO SCH (10:55)
[2017-11-26] MEDS ORDERED: 0.9 % SODIUM CHLORIDE 10 ML VIAL ONE (10:56)
[2017-11-26] MEDS ORDERED: ondansetron/PF 4mg/2ml inj IV PRN (11:10)
[2017-11-26] MEDS ORDERED: labetalol 5mg/ml 20ml inj. IV PRN (11:10)
[2017-11-26] MEDS ORDERED: hydrALAZINE 20mg/ml inj. IV PRN (11:10)
[2017-11-26] MEDS ORDERED: ringers solution, lacted 1,000 ML IV SCH (11:10)
[2017-11-26] MEDS ORDERED: HYDROmorphone 1 mg/ml syringe IV PRN (11:10)
[2017-11-26] MEDS ORDERED: fentaNYL/PF 50MCG/1 ML 2ML syringe IV PRN (11:10)
[2017-11-26] MEDS ORDERED: fentaNYL/PF 50MCG/1 ML 2ML syringe ONE ×2 (11:55→13:36)
[2017-11-26] MEDS ORDERED: LIDOcaine 1%/PF (10mg/ml) 5ml vial ONE (11:55)
[2017-11-26] MEDS ORDERED: propofol inj 20 ML IV ONE ×2 (11:56→13:34)
[2017-11-26] MEDS ORDERED: rocuronium 10mg/ml inj IV ONE (11:56)
[2017-11-26] MEDS ORDERED: CISatracurium **Bolus** 2 mg/ml inj IV ONE (12:05)
[2017-11-26] MEDS ORDERED: sevoflurane 250ml liquid IH ONE (12:36)
[2017-11-26] MEDS ORDERED: levoFLOXACIN-Levaquin 500mg/D5 100 ML IV ONE (13:09)
[2017-11-26] MEDS ORDERED: glycopyrrolate 0.2mg/ml inj ONE (13:28)
[2017-11-26] MEDS ORDERED: neostigmine methylsulfate 1 MG/ML 10ml vial ONE (13:29)
[2017-11-26] MEDS ORDERED: ondansetron/PF 4mg/2ml inj ONE (13:29)
[2017-11-26] MEDS ORDERED: HYDROcodone/acetaminophen 10/325mg tab PO PRN (14:00)
[2017-11-26] MEDS ORDERED: HYDROmorphone inj. 0.5 MG/0.5 ML DISP.SYRIN IV PRN (15:02)
[2017-11-26] MEDS: Insulin Detemir pen SQ SCH (20:32)
[2017-11-26] MEDS: atorvastatin 20mg tablet PO SCH (20:33)
[2017-11-27 00:28] VITALS: BP 167/83
[2017-11-27] MEDS: HYDROcodone/acetaminophen 10/325mg tab PO PRN ×3 (01:56→10:28)
[2017-11-27 03:53] VITALS: BP 148/77
[2017-11-27] MEDS: normal saline 1000ml 1,000 ML IV SCH (05:23)
[2017-11-27 06:35] LABS: BASOPHILS % (AUTO) 0.4 % (0-1); EOSINOPHILS # (AUTO) 0.4 X10'3 (0-0.9); EOSINOPHILS % (AUTO) 4.2 % (0-6); HEMATOCRIT 28.9 % (35.0-45.0); HEMOGLOBIN 9.6 g/dl (12.0-16.0); LYMPHOCYTES # (AUTO) 1.8 X10'3 (1.1-4.8); LYMPHOCYTES % (AUTO) 18.5 % (21-51); MEAN CORPUSCULAR HEMOGLOBIN 29.5 PG (27.0-31.0); MEAN CORPUSCULAR HGB CONC 33.3 % (33.0-36.5); MEAN CORPUSCULAR VOLUME 88.7 FL (78-98); MEAN PLATELET VOLUME 7.8 FL (7.4-10.4); MONOCYTES # (AUTO) 0.7 X10'3 (0-0.9); MONOCYTES % (AUTO) 7.2 % (2-12); NEUTROPHILS # (AUTO) 6.8 X10'3 (1.8-7.7); NEUTROPHILS % (AUTO) 69.7 % (42-75); PLATELET COUNT 247 X10'3 (140-440); RED BLOOD COUNT 3.26 X10'6 (4.20-5.60); RED CELL DISTRIBUTION WIDTH 12.9 % (11.5-14.5); WHITE BLOOD COUNT 9.7 X10'3 (4.5-11.0)
[2017-11-27 06:38] LABS: ALANINE AMINOTRANSFERASE 72 U/L (12-78); ALBUMIN 2.2 G/DL (3.4-5.0); ALBUMIN/GLOBULIN RATIO 0.6 (1.1-1.5); ALKALINE PHOSPHATASE 86 IU/L (46-116); ANION GAP 10 (8-16); ASPARTATE AMINO TRANSFERASE 65 U/L (10-37); BILIRUBIN,TOTAL 0.2 MG/DL (0.1-1.0); BLOOD UREA NITROGEN 35 MG/DL (7-18); BUN/CREATININE RATIO 17.9 (6.6-38.0); CALCIUM 8.8 MG/DL (8.5-10.1); CHLORIDE 107 MMOL/L (99-107); CREATININE 1.96 MG/DL (0.40-0.90); GLUCOSE 111 MG/DL (70-104); MAGNESIUM 1.6 MG/DL (1.5-2.4); POTASSIUM 5.2 MMOL/L (3.5-5.1); SODIUM 136 MMOL/L (135-145); TOTAL CARBON DIOXIDE 19.1 MMOL/L (24-32); TOTAL PROTEIN 5.9 G/DL (6.4-8.2); eGFR 27 ML/MIN
[2017-11-27 07:00] VITALS: BP 142/75
[2017-11-27] MEDS: metoprolol tartrate 12.5mg (1/2 tablet) PO SCH (07:27)
[2017-11-27] MEDS: aspirin 81mg tab.chew PO SCH (07:27)
[2017-11-27] MEDS: nitroGLYCERIN 0.2mg/hour patch TD SCH (07:27)
[2017-11-27] MEDS: citalopram 20mg tablet PO SCH (07:27)
[2017-11-27] MEDS: losartan 25mg tablet PO SCH (07:27)
[2017-11-27] MEDS: amLODIPine 5mg tablet PO SCH (07:27)
[2017-11-27] MEDS: nortriptyline 10mg capsule PO SCH (07:27)
[2017-11-27] MEDS: varenicline tartrate 0.5mg tablet PO SCH (07:27)
[2017-11-27] MEDS: cloNIDine 0.1 mg tablet PO SCH (07:27)
[2017-11-27] MEDS: insulin Lispro (HumaLOG) vial - multi-dose SQ SCH (13:35)
[2017-11-27] MEDS ORDERED: LEVO500T2 PO (15:12)
[2017-11-27] MEDS ORDERED: METO25TA6 PO (15:12)
[2017-11-27] MEDS ORDERED: HYDR-3972 PO (15:12)
== END 2017-11-27 16:53 | disposition home or self-care (01) | DRG 263 ==
LOC: ER 19:15 → ED HOLD 21:26 → PCU 3S 22:04 → MED 3N 11-25 23:52
PROVIDERS: ADMIT Family Medicine; ATTEND Family Medicine
PROC: CB121ZZ Planar Nuclear Medicine Imaging of Lungs and Bronchi using Technetium 99m (Tc-99m) (ICD-10-PCS; 2017-11-20)
PROC: 4A023N7 Measurement of Cardiac Sampling and Pressure, Left Heart, Percutaneous Approach (ICD-10-PCS; 2017-11-24)
PROC: B2111ZZ Fluoroscopy of Multiple Coronary Arteries using Low Osmolar Contrast (ICD-10-PCS; 2017-11-24)
PROC: B2151ZZ Fluoroscopy of Left Heart using Low Osmolar Contrast (ICD-10-PCS; 2017-11-24)
PROC: B41F1ZZ Fluoroscopy of Right Lower Extremity Arteries using Low Osmolar Contrast (ICD-10-PCS; 2017-11-24)
PROC: 0FT44ZZ Resection of Gallbladder, Percutaneous Endoscopic Approach (ICD-10-PCS; 2017-11-26)
PROC: 5A09357 Assistance with Respiratory Ventilation, Less than 24 Consecutive Hours, Continuous Positive Airway Pressure (ICD-10-PCS; principal; 2017-11-26 12:36)
DX: K81.2 Acute cholecystitis with chronic cholecystitis (principal); N17.0 Acute kidney failure with tubular necrosis; E11.21 Type 2 diabetes mellitus with diabetic nephropathy; E11.42 Type 2 diabetes mellitus with diabetic polyneuropathy; E11.22 Type 2 diabetes mellitus with diabetic chronic kidney disease; I25.10 Atherosclerotic heart disease of native coronary artery without angina pectoris; E11.51 Type 2 diabetes mellitus with diabetic peripheral angiopathy without gangrene; E11.65 Type 2 diabetes mellitus with hyperglycemia; N18.3 Chronic kidney disease, stage 3 (moderate); E78.5 Hyperlipidemia, unspecified; E78.00 Pure hypercholesterolemia, unspecified; M46.44 Discitis, unspecified, thoracic region; D64.9 Anemia, unspecified; F32.9 Major depressive disorder, single episode, unspecified; M54.5 Low back pain; E66.9 Obesity, unspecified; E86.0 Dehydration; E87.1 Hypo-osmolality and hyponatremia; F17.210 Nicotine dependence, cigarettes, uncomplicated; G89.29 Other chronic pain; I16.0 Hypertensive urgency; M54.9 Dorsalgia, unspecified; E87.5 Hyperkalemia; I12.9 Hypertensive chronic kidney disease with stage 1 through stage 4 chronic kidney disease, or unspecified chronic kidney disease; K31.9 Disease of stomach and duodenum, unspecified; K82.8 Other specified diseases of gallbladder; M19.90 Unspecified osteoarthritis, unspecified site; M45.9 Ankylosing spondylitis of unspecified sites in spine; N18.9 Chronic kidney disease, unspecified; Z79.4 Long term (current) use of insulin; Z88.0 Allergy status to penicillin; Z79.899 Other long term (current) drug therapy; Z79.01 Long term (current) use of anticoagulants; Z79.82 Long term (current) use of aspirin; Z82.5 Family history of asthma and other chronic lower respiratory diseases; Z83.3 Family history of diabetes mellitus; Z90.710 Acquired absence of both cervix and uterus; Z68.39 Body mass index [BMI] 39.0-39.9, adult
CPT/HCPCS: 36415; 71010; 72146; 72148; 78452; 78582; 80053; 80061; 81001; 82570; 82948; 83690; 83735; 83880; 84156; 84300; 84443; 84484; 85025; 85379; 85610; 85651; 85730; 86140; 87040; 87070; 87207; 93005; 93306; 93458; 94660; 99152; 99153; 99285; A4620; A6251; A6257; A7000; A9500; A9539; A9540; C1769; J0360; J0690; J1170; J1200; J1644; J1650; J1956; J2001; J2250; J2270; J2405; J2704; J2710; J2765; J3010; J3490; J7030; J7120; Q9967

== ENCOUNTER 2018-01-23 21:56 | Inpatient (IN) | payer MEDICAID ==
[~2018-01-23] VITALS: Ht 160 cm; Wt 90.0 kg
[~2018-01-23 21:56] MED LIST changes: -ATOR40TA72 PO; -ESCI10TA PO; +HYDR-3972 PO; +INSU100I31; -LANTUS SUBCUT; +LINA5TAB4 PO; +LOSA25TA96 PO; +METO25TA6 PO; -METR500T PO; +NORT10CA81 PO; +OMEP20CA10 PO; -SITA100T11 PO; -SITA100T15 PO; -VALS40TA2 PO; +VARE0.5T PO
[2018-01-23 22:54] LABS: BASOPHILS # (AUTO) 0.1 X10'3 (0-0.2); BASOPHILS % (AUTO) 0.6 % (0-1); EOSINOPHILS # (AUTO) 0.5 X10'3 (0-0.9); EOSINOPHILS % (AUTO) 5.8 % (0-6); HEMATOCRIT 34.5 % (35.0-45.0); HEMOGLOBIN 12.1 g/dl (12.0-16.0); LYMPHOCYTES # (AUTO) 2.1 X10'3 (1.1-4.8); LYMPHOCYTES % (AUTO) 23.1 % (21-51); MEAN CORPUSCULAR HEMOGLOBIN 30.1 PG (27.0-31.0); MEAN CORPUSCULAR HGB CONC 34.9 % (33.0-36.5); MEAN CORPUSCULAR VOLUME 86.1 FL (78-98); MEAN PLATELET VOLUME 7.8 FL (7.4-10.4); MONOCYTES # (AUTO) 0.5 X10'3 (0-0.9); MONOCYTES % (AUTO) 4.9 % (2-12); NEUTROPHILS # (AUTO) 6.1 X10'3 (1.8-7.7); NEUTROPHILS % (AUTO) 65.6 % (42-75); PLATELET COUNT 283 X10'3 (140-440); RED BLOOD COUNT 4.01 X10'6 (4.20-5.60); WHITE BLOOD COUNT 9.3 X10'3 (4.5-11.0)
[2018-01-23 23:15] LABS: ALANINE AMINOTRANSFERASE 26 U/L (12-78); ALBUMIN 2.8 G/DL (3.4-5.0); ALBUMIN/GLOBULIN RATIO 0.7 (1.1-1.5); ALKALINE PHOSPHATASE 95 IU/L (46-116); ANION GAP 13 (8-16); ASPARTATE AMINO TRANSFERASE 16 U/L (10-37); BILIRUBIN,TOTAL 0.3 MG/DL (0.1-1.0); BLOOD UREA NITROGEN 33 MG/DL (7-18); BUN/CREATININE RATIO 15.7 (6.6-38.0); CALCIUM 8.5 MG/DL (8.5-10.1); CHLORIDE 95 MMOL/L (99-107); POTASSIUM 4.9 MMOL/L (3.5-5.1); SODIUM 129 MMOL/L (135-145); TOTAL CARBON DIOXIDE 21.5 MMOL/L (24-32); TOTAL PROTEIN 6.8 G/DL (6.4-8.2); eGFR 25 ML/MIN
[2018-01-23 23:18] LABS: GLUCOSE 652 MG/DL (70-104)
[2018-01-23] MEDS ORDERED: normal saline 1000ML IV soln IVB ONE (23:55)
[2018-01-23] MEDS ORDERED: morphine 2 MG/ML inj. syringe IV ONE (23:55)
[2018-01-23] MEDS ORDERED: LORazepam 2 mg/ml vial IV ONE (23:55)
[2018-01-23] MEDS ORDERED: ondansetron/PF 4mg/2ml inj IV ONE (23:55)
[2018-01-23] MEDS ORDERED: famotidine/PF 10 mg/ml inj IV ONE (23:55)
[2018-01-24] MEDS ORDERED: normal saline 1000ML IV soln IV ONE (01:25)
[2018-01-24] MEDS ORDERED: insulin regular, human 10 units/0.1 ml syringe IV ONE (01:25)
[2018-01-24] MEDS ORDERED: cloNIDine 0.1 mg tablet PO ONE (01:45)
[2018-01-24] MEDS ORDERED: hydrALAZINE 20mg/ml inj. IV ONE ×2 (01:45→04:20)
[2018-01-24] MEDS ORDERED: ondansetron/PF 4mg/2ml inj IV ONE (02:10)
[2018-01-24] MEDS ORDERED: morphine 4 MG/ML inj SYRINge IV ONE (02:20)
[2018-01-24] MEDS ORDERED: proCHLORperazine 10 MG/2 ml inj IV ONE (05:40)
[2018-01-24] MEDS ORDERED: normal saline 1000ML IV soln IVB ONE (05:40)
[2018-01-24] MEDS ORDERED: CLON-529 PO (07:06)
[2018-01-24] MEDS ORDERED: GLIP5TAB13 PO (07:06)
[2018-01-24] MEDS ORDERED: proCHLORperazine 10 MG/2 ml inj IV PRN (07:20)
[2018-01-24] MEDS ORDERED: acetaminophen 325mg tablet PO PRN ×2 (08:55)
[2018-01-24] MEDS ORDERED: morphine 2 MG/ML inj. syringe IV PRN ×2 (08:55)
[2018-01-24] MEDS ORDERED: magnesium hydroxide 30ml (MOM) UD suspension PO PRN (08:55)
[2018-01-24] MEDS ORDERED: magnesium 2GM in 50ml NS 50 ML IV PRN (08:55)
[2018-01-24] MEDS ORDERED: potassium Cl 40MEQ/NS 500ml 500 ML IV PRN ×2 (08:55)
[2018-01-24] MEDS ORDERED: mag hydrox/Alum hydrox/simeth 30ml oral suspension PO PRN (08:55)
[2018-01-24] MEDS ORDERED: magnesium 4gm in 100ml NS 100 ML IV PRN (08:55)
[2018-01-24] MEDS ORDERED: ondansetron/PF 4mg/2ml inj IV PRN (08:55)
[2018-01-24] MEDS ORDERED: dextrose 50%-water 50ml dispensing syringe IV PRN ×2 (08:55)
[2018-01-24] MEDS ORDERED: glucagon, human recombinant 1mg kit SUBCUT PRN (08:55)
[2018-01-24] MEDS ORDERED: potassium Cl 20 mEq SR tablet PO PRN ×2 (08:55)
[2018-01-24] MEDS ORDERED: dextrose ORAL solution 15 GM/59 ML bottle PO PRN (08:55)
[2018-01-24] MEDS: K and/or MAG REPLACEMENT MC SCH (08:55)
[2018-01-24] MEDS ORDERED: magnesium Cl slow-release 64mg tablet PO PRN (08:55)
[2018-01-24] MEDS ORDERED: MESSAGE TO PHARMACY PO ONE (08:55)
[2018-01-24 09:30] LABS: HEMOGLOBIN A1C 9.7 % (4.5-6.2)
[2018-01-24] MEDS: diatr meglu/diatrizoate 30ml oral sol.-(3 dose) bottle PO SCH ×3 (11:29→17:40)
[2018-01-24] MEDS: sodium chloride 0.45% 1,000 ML IV SCH ×2 (13:57→19:28)
[2018-01-24] MEDS: hydrALAZINE 20mg/ml inj. IV SCH ×2 (13:57→19:36)
[2018-01-24] MEDS: insulin Lispro (HumaLOG) vial - multi-dose SQ SCH ×2 (14:18→20:26)
[2018-01-24] MEDS ORDERED: LINA5TAB4 PO (15:23)
[2018-01-24] MEDS ORDERED: iohexol 300mg/ml 100ml inj. ONE (17:09)
[2018-01-24 19:00] VITALS: BP 178/86
[2018-01-24] MEDS: cloNIDine 0.1 mg tablet PO SCH (19:32)
[2018-01-24] MEDS: HYDROcodone/acetaminophen 5mg/325mg tablet PO PRN (19:32)
[2018-01-24] MEDS: varenicline tartrate 0.5mg tablet PO SCH (20:27)
[2018-01-24] MEDS ORDERED: temazepam 15mg capsule PO PRN (21:00)
[2018-01-24 22:20] VITALS: BP 144/73
[2018-01-24] MEDS ORDERED: insulin Lispro (HumaLOG) vial - multi-dose SQ ONE (22:50)
[2018-01-24] MEDS: insulin glargine (Lantus) pen - multi-dose SQ SCH (22:59)
[2018-01-25] VITALS: BP 116/52
[2018-01-25 01:15] VITALS: BP 162/86
[2018-01-25] MEDS: hydrALAZINE 20mg/ml inj. IV SCH ×2 (01:28→09:26)
[2018-01-25] MEDS: HYDROcodone/acetaminophen 5mg/325mg tablet PO PRN (01:28)
[2018-01-25] MEDS: sodium chloride 0.45% 1,000 ML IV SCH ×2 (01:39→15:12)
[2018-01-25] MEDS: HYDROcodone/acetaminophen 10/325mg tab PO PRN ×3 (05:33→22:16)
[2018-01-25 05:56] LABS: BASOPHILS % (AUTO) 0.5 % (0-1); EOSINOPHILS # (AUTO) 0.6 X10'3 (0-0.9); EOSINOPHILS % (AUTO) 6.6 % (0-6); HEMOGLOBIN 10.3 g/dl (12.0-16.0); LYMPHOCYTES # (AUTO) 3.1 X10'3 (1.1-4.8); LYMPHOCYTES % (AUTO) 32.5 % (21-51); MEAN CORPUSCULAR HEMOGLOBIN 29.8 PG (27.0-31.0); MEAN CORPUSCULAR HGB CONC 34.4 % (33.0-36.5); MEAN CORPUSCULAR VOLUME 86.7 FL (78-98); MEAN PLATELET VOLUME 7.6 FL (7.4-10.4); MONOCYTES # (AUTO) 0.7 X10'3 (0-0.9); MONOCYTES % (AUTO) 7.7 % (2-12); NEUTROPHILS % (AUTO) 52.7 % (42-75); PLATELET COUNT 255 X10'3 (140-440); RED BLOOD COUNT 3.46 X10'6 (4.20-5.60); RED CELL DISTRIBUTION WIDTH 13.3 % (11.5-14.5); WHITE BLOOD COUNT 9.4 X10'3 (4.5-11.0)
[2018-01-25 07:21] VITALS: BP 169/64
[2018-01-25] MEDS ORDERED: pantoprazole 40mg Tablet.DR PO SCH (08:00)
[2018-01-25] MEDS: K and/or MAG REPLACEMENT MC SCH (08:00)
[2018-01-25] MEDS ORDERED: escitalopram 20mg tablet PO SCH (08:00)
[2018-01-25] MEDS ORDERED: losartan 25mg tablet PO SCH (08:00)
[2018-01-25 09:04] LABS: MAGNESIUM 1.4 MG/DL (1.5-2.4)
[2018-01-25 09:22] LABS: ALANINE AMINOTRANSFERASE 14 U/L (12-78); ALBUMIN 2.1 G/DL (3.4-5.0); ALBUMIN/GLOBULIN RATIO 0.6 (1.1-1.5); ALKALINE PHOSPHATASE 72 IU/L (46-116); ANION GAP 13 (8-16); ASPARTATE AMINO TRANSFERASE 14 U/L (10-37); BILIRUBIN,TOTAL 0.4 MG/DL (0.1-1.0); BLOOD UREA NITROGEN 28 MG/DL (7-18); BUN/CREATININE RATIO 14.7 (6.6-38.0); CALCIUM 8.4 MG/DL (8.5-10.1); CHLORIDE 104 MMOL/L (99-107); CREATININE 1.91 MG/DL (0.40-0.90); GLUCOSE 263 MG/DL (70-104); POTASSIUM 4.1 MMOL/L (3.5-5.1); SODIUM 138 MMOL/L (135-145); TOTAL PROTEIN 5.5 G/DL (6.4-8.2); eGFR 28 ML/MIN
[2018-01-25] MEDS: varenicline tartrate 0.5mg tablet PO SCH ×2 (09:26→19:22)
[2018-01-25] MEDS: citalopram 20mg tablet PO SCH (09:26)
[2018-01-25] MEDS: cloNIDine 0.1 mg tablet PO SCH ×2 (09:26→19:19)
[2018-01-25] MEDS: nortriptyline 10mg capsule PO SCH (09:26)
[2018-01-25] MEDS: insulin Lispro (HumaLOG) vial - multi-dose SQ SCH ×3 (09:34→19:17)
[2018-01-25] MEDS ORDERED: hydrALAZINE 20mg/ml inj. IV PRN (09:40)
[2018-01-25] MEDS: linagliptin 5mg tablet PO SCH (11:01)
[2018-01-25] MEDS: amLODIPine 5mg tablet PO SCH (11:01)
[2018-01-25 11:31] VITALS: BP 131/68
[2018-01-25] MEDS: sucralfate 1 gm tablet PO SCH ×2 (17:06→22:16)
[2018-01-25] MEDS: pantoprazole 40mg Tablet.DR PO SCH (19:21)
[2018-01-25 20:00] VITALS: BP 124/61
[2018-01-25] MEDS: insulin glargine (Lantus) pen - multi-dose SQ SCH (22:11)
[2018-01-25] MEDS: nystatin 15 GM powder TP SCH (22:16)
[2018-01-26] VITALS: BP 129/49
[2018-01-26] MEDS ORDERED: morphine 4 MG/ML inj SYRINge IV PRN ×2 (00:20)
[2018-01-26] MEDS: sodium chloride 0.45% 1,000 ML IV SCH ×2 (01:27→12:00)
[2018-01-26] MEDS ORDERED: diphenhydrAMINE 50 mg/ml inj IV ONE (01:50)
[2018-01-26] MEDS ORDERED: metoclopramide 5 mg/ml inj IV ONE (01:50)
[2018-01-26] MEDS ORDERED: metoclopramide 5 mg/ml inj ONE (02:22)
[2018-01-26 05:57] LABS: BASOPHILS % (AUTO) 0.3 % (0-1); EOSINOPHILS # (AUTO) 0.5 X10'3 (0-0.9); EOSINOPHILS % (AUTO) 5.2 % (0-6); HEMATOCRIT 27.2 % (35.0-45.0); HEMOGLOBIN 9.6 g/dl (12.0-16.0); LYMPHOCYTES # (AUTO) 2.6 X10'3 (1.1-4.8); LYMPHOCYTES % (AUTO) 25.8 % (21-51); MEAN CORPUSCULAR HEMOGLOBIN 30.4 PG (27.0-31.0); MEAN CORPUSCULAR HGB CONC 35.3 % (33.0-36.5); MEAN CORPUSCULAR VOLUME 86.2 FL (78-98); MEAN PLATELET VOLUME 7.8 FL (7.4-10.4); MONOCYTES # (AUTO) 0.6 X10'3 (0-0.9); MONOCYTES % (AUTO) 6.1 % (2-12); NEUTROPHILS # (AUTO) 6.4 X10'3 (1.8-7.7); NEUTROPHILS % (AUTO) 62.6 % (42-75); PLATELET COUNT 227 X10'3 (140-440); RED BLOOD COUNT 3.16 X10'6 (4.20-5.60); RED CELL DISTRIBUTION WIDTH 13.4 % (11.5-14.5); WHITE BLOOD COUNT 10.2 X10'3 (4.5-11.0)
[2018-01-26 06:31] LABS: ALANINE AMINOTRANSFERASE 18 U/L (12-78); ALBUMIN 2.1 G/DL (3.4-5.0); ALBUMIN/GLOBULIN RATIO 0.7 (1.1-1.5); ALKALINE PHOSPHATASE 64 IU/L (46-116); ANION GAP 10 (8-16); ASPARTATE AMINO TRANSFERASE 12 U/L (10-37); BILIRUBIN,TOTAL 0.3 MG/DL (0.1-1.0); BLOOD UREA NITROGEN 32 MG/DL (7-18); BUN/CREATININE RATIO 16.2 (6.6-38.0); CHLORIDE 102 MMOL/L (99-107); CREATININE 1.97 MG/DL (0.40-0.90); GLUCOSE 157 MG/DL (70-104); MAGNESIUM 1.7 MG/DL (1.5-2.4); POTASSIUM 4.2 MMOL/L (3.5-5.1); SODIUM 134 MMOL/L (135-145); TOTAL CARBON DIOXIDE 21.8 MMOL/L (24-32); TOTAL PROTEIN 5.3 G/DL (6.4-8.2); eGFR 27 ML/MIN
[2018-01-26 07:03] VITALS: BP 133/69
[2018-01-26] MEDS: linagliptin 5mg tablet PO SCH (07:29)
[2018-01-26] MEDS: pantoprazole 40mg Tablet.DR PO SCH ×2 (07:30→20:23)
[2018-01-26] MEDS: sucralfate 1 gm tablet PO SCH ×4 (07:30→20:23)
[2018-01-26] MEDS: varenicline tartrate 0.5mg tablet PO SCH ×2 (07:30→20:23)
[2018-01-26] MEDS: losartan 50mg tablet PO SCH (07:30)
[2018-01-26] MEDS: amLODIPine 5mg tablet PO SCH (07:30)
[2018-01-26] MEDS: nortriptyline 10mg capsule PO SCH (07:31)
[2018-01-26] MEDS: citalopram 20mg tablet PO SCH (07:31)
[2018-01-26] MEDS: cloNIDine 0.1 mg tablet PO SCH ×2 (07:31→20:24)
[2018-01-26] MEDS: nystatin 15 GM powder TP SCH ×3 (07:34→20:26)
[2018-01-26] MEDS: HYDROcodone/acetaminophen 10/325mg tab PO PRN (07:36)
[2018-01-26] MEDS: K and/or MAG REPLACEMENT MC SCH (07:39)
[2018-01-26] MEDS: insulin Lispro (HumaLOG) vial - multi-dose SQ SCH ×2 (08:55→14:11)
[2018-01-26 18:30] VITALS: BP 125/57
[2018-01-26] MEDS ORDERED: insulin Lispro (HumaLOG) vial - multi-dose SQ ONE (20:00)
[2018-01-26 20:26] VITALS: BP 145/79
[2018-01-26] MEDS: insulin glargine (Lantus) pen - multi-dose SQ SCH (21:54)
[2018-01-27] VITALS: BP 127/79
[2018-01-27 05:35] LABS: BASOPHILS % (AUTO) 0.4 % (0-1); EOSINOPHILS # (AUTO) 0.8 X10'3 (0-0.9); EOSINOPHILS % (AUTO) 7.8 % (0-6); HEMATOCRIT 28.4 % (35.0-45.0); HEMOGLOBIN 9.9 g/dl (12.0-16.0); LYMPHOCYTES # (AUTO) 3.2 X10'3 (1.1-4.8); LYMPHOCYTES % (AUTO) 31.4 % (21-51); MEAN CORPUSCULAR HEMOGLOBIN 30.1 PG (27.0-31.0); MEAN CORPUSCULAR HGB CONC 34.7 % (33.0-36.5); MEAN CORPUSCULAR VOLUME 86.7 FL (78-98); MEAN PLATELET VOLUME 7.4 FL (7.4-10.4); MONOCYTES # (AUTO) 0.6 X10'3 (0-0.9); MONOCYTES % (AUTO) 5.8 % (2-12); NEUTROPHILS # (AUTO) 5.5 X10'3 (1.8-7.7); NEUTROPHILS % (AUTO) 54.6 % (42-75); PLATELET COUNT 247 X10'3 (140-440); RED BLOOD COUNT 3.27 X10'6 (4.20-5.60); RED CELL DISTRIBUTION WIDTH 13.1 % (11.5-14.5); WHITE BLOOD COUNT 10.1 X10'3 (4.5-11.0)
[2018-01-27 05:51] LABS: ALANINE AMINOTRANSFERASE 20 U/L (12-78); ALBUMIN 2.1 G/DL (3.4-5.0); ALBUMIN/GLOBULIN RATIO 0.7 (1.1-1.5); ALKALINE PHOSPHATASE 67 IU/L (46-116); ANION GAP 9 (8-16); ASPARTATE AMINO TRANSFERASE 13 U/L (10-37); BILIRUBIN,TOTAL 0.2 MG/DL (0.1-1.0); BLOOD UREA NITROGEN 31 MG/DL (7-18); BUN/CREATININE RATIO 16.2 (6.6-38.0); CALCIUM 8.1 MG/DL (8.5-10.1); CHLORIDE 102 MMOL/L (99-107); CREATININE 1.91 MG/DL (0.40-0.90); GLUCOSE 181 MG/DL (70-104); MAGNESIUM 1.8 MG/DL (1.5-2.4); SODIUM 133 MMOL/L (135-145); TOTAL CARBON DIOXIDE 22.2 MMOL/L (24-32); TOTAL PROTEIN 5.3 G/DL (6.4-8.2); eGFR 28 ML/MIN
[2018-01-27] MEDS: HYDROcodone/acetaminophen 10/325mg tab PO PRN (06:37)
[2018-01-27] MEDS: sucralfate 1 gm tablet PO SCH ×4 (06:37→21:41)
[2018-01-27 07:02] VITALS: BP 157/66
[2018-01-27] MEDS: K and/or MAG REPLACEMENT MC SCH (08:21)
[2018-01-27] MEDS: nystatin 15 GM powder TP SCH ×3 (08:40→21:00)
[2018-01-27] MEDS: cloNIDine 0.1 mg tablet PO SCH ×2 (08:40→20:07)
[2018-01-27] MEDS: nortriptyline 10mg capsule PO SCH (08:42)
[2018-01-27] MEDS: varenicline tartrate 0.5mg tablet PO SCH ×2 (08:42→20:08)
[2018-01-27] MEDS: losartan 50mg tablet PO SCH (08:43)
[2018-01-27] MEDS: linagliptin 5mg tablet PO SCH (08:43)
[2018-01-27] MEDS: citalopram 20mg tablet PO SCH (08:43)
[2018-01-27] MEDS: amLODIPine 5mg tablet PO SCH (08:44)
[2018-01-27] MEDS: insulin Lispro (HumaLOG) vial - multi-dose SQ SCH ×3 (08:48→19:11)
[2018-01-27] MEDS: pantoprazole 40mg Tablet.DR PO SCH ×2 (08:50→20:08)
[2018-01-27 11:00] VITALS: BP 117/69
[2018-01-27] MEDS: SUMAtriptan 25 MG tablet PO PRN (16:44)
[2018-01-27 18:40] VITALS: BP 126/70
[2018-01-27] MEDS: heparin, porcine 5000 units/ml vial SQ SCH (20:08)
[2018-01-27] MEDS: insulin glargine (Lantus) pen - multi-dose SQ SCH (21:44)
[2018-01-28] VITALS: BP 122/78
[2018-01-28 05:26] LABS: BASOPHILS % (AUTO) 0.6 % (0-1); EOSINOPHILS # (AUTO) 0.6 X10'3 (0-0.9); EOSINOPHILS % (AUTO) 7.2 % (0-6); HEMATOCRIT 26.5 % (35.0-45.0); HEMOGLOBIN 9.4 g/dl (12.0-16.0); LYMPHOCYTES # (AUTO) 2.9 X10'3 (1.1-4.8); LYMPHOCYTES % (AUTO) 35.3 % (21-51); MEAN CORPUSCULAR HEMOGLOBIN 30.3 PG (27.0-31.0); MEAN CORPUSCULAR HGB CONC 35.4 % (33.0-36.5); MEAN CORPUSCULAR VOLUME 85.4 FL (78-98); MEAN PLATELET VOLUME 7.6 FL (7.4-10.4); MONOCYTES # (AUTO) 0.5 X10'3 (0-0.9); MONOCYTES % (AUTO) 6.1 % (2-12); NEUTROPHILS # (AUTO) 4.2 X10'3 (1.8-7.7); NEUTROPHILS % (AUTO) 50.8 % (42-75); PLATELET COUNT 223 X10'3 (140-440); RED CELL DISTRIBUTION WIDTH 12.9 % (11.5-14.5); WHITE BLOOD COUNT 8.2 X10'3 (4.5-11.0)
[2018-01-28 06:07] LABS: ALANINE AMINOTRANSFERASE 18 U/L (12-78); ALBUMIN/GLOBULIN RATIO 0.6 (1.1-1.5); ALKALINE PHOSPHATASE 64 IU/L (46-116); ANION GAP 10 (8-16); ASPARTATE AMINO TRANSFERASE 11 U/L (10-37); BILIRUBIN,TOTAL 0.2 MG/DL (0.1-1.0); BLOOD UREA NITROGEN 42 MG/DL (7-18); BUN/CREATININE RATIO 21.3 (6.6-38.0); CALCIUM 8.4 MG/DL (8.5-10.1); CHLORIDE 104 MMOL/L (99-107); CREATININE 1.97 MG/DL (0.40-0.90); GLUCOSE 245 MG/DL (70-104); MAGNESIUM 1.7 MG/DL (1.5-2.4); POTASSIUM 5.4 MMOL/L (3.5-5.1); SODIUM 136 MMOL/L (135-145); TOTAL CARBON DIOXIDE 22.2 MMOL/L (24-32); TOTAL PROTEIN 5.3 G/DL (6.4-8.2); eGFR 27 ML/MIN
[2018-01-28 07:00] VITALS: BP 176/64
[2018-01-28] MEDS: citalopram 20mg tablet PO SCH (07:04)
[2018-01-28] MEDS: linagliptin 5mg tablet PO SCH (07:04)
[2018-01-28] MEDS: nortriptyline 10mg capsule PO SCH (07:04)
[2018-01-28] MEDS: sucralfate 1 gm tablet PO SCH ×4 (07:04→22:49)
[2018-01-28] MEDS: varenicline tartrate 0.5mg tablet PO SCH ×2 (07:04→19:45)
[2018-01-28] MEDS: pantoprazole 40mg Tablet.DR PO SCH ×2 (07:04→19:46)
[2018-01-28] MEDS: amLODIPine 5mg tablet PO SCH (07:04)
[2018-01-28] MEDS: cloNIDine 0.1 mg tablet PO SCH ×2 (07:04→19:48)
[2018-01-28] MEDS: losartan 50mg tablet PO SCH (07:04)
[2018-01-28] MEDS: nystatin 15 GM powder TP SCH ×3 (07:05→21:00)
[2018-01-28] MEDS: heparin, porcine 5000 units/ml vial SQ SCH ×2 (07:05→19:50)
[2018-01-28] MEDS: SUMAtriptan 25 MG tablet PO PRN ×2 (07:06→13:43)
[2018-01-28] MEDS: K and/or MAG REPLACEMENT MC SCH (08:00)
[2018-01-28] MEDS: insulin Lispro (HumaLOG) vial - multi-dose SQ SCH ×4 (09:07→22:47)
[2018-01-28 09:19] VITALS: BP 114/66
[2018-01-28] MEDS ORDERED: furosemide 40mg/4ml inj IV ONE (10:55)
[2018-01-28] MEDS ORDERED: normal saline 1000ml 1,000 ML IV ONE (10:55)
[2018-01-28 11:00] VITALS: BP 109/64
[2018-01-28] MEDS: dextrose ORAL solution 15 GM/59 ML bottle PO PRN ×2 (16:17→16:36)
[2018-01-28 18:00] VITALS: BP 143/78
[2018-01-28] MEDS: insulin glargine (Lantus) pen - multi-dose SQ SCH (22:45)
[2018-01-28] MEDS: HYDROcodone/acetaminophen 10/325mg tab PO PRN (22:49)
[2018-01-29] VITALS: BP 110/52
[2018-01-29 04:23] LABS: BASOPHILS % (AUTO) 0.6 % (0-1); EOSINOPHILS # (AUTO) 0.6 X10'3 (0-0.9); EOSINOPHILS % (AUTO) 6.7 % (0-6); HEMOGLOBIN 9.3 g/dl (12.0-16.0); LYMPHOCYTES # (AUTO) 2.4 X10'3 (1.1-4.8); LYMPHOCYTES % (AUTO) 29.4 % (21-51); MEAN CORPUSCULAR HGB CONC 34.6 % (33.0-36.5); MEAN CORPUSCULAR VOLUME 86.7 FL (78-98); MONOCYTES # (AUTO) 0.5 X10'3 (0-0.9); MONOCYTES % (AUTO) 6.3 % (2-12); NEUTROPHILS # (AUTO) 4.7 X10'3 (1.8-7.7); PLATELET COUNT 242 X10'3 (140-440); RED BLOOD COUNT 3.11 X10'6 (4.20-5.60); WHITE BLOOD COUNT 8.3 X10'3 (4.5-11.0)
[2018-01-29 04:39] LABS: ALANINE AMINOTRANSFERASE 19 U/L (12-78); ALBUMIN 2.2 G/DL (3.4-5.0); ALBUMIN/GLOBULIN RATIO 0.7 (1.1-1.5); ALKALINE PHOSPHATASE 72 IU/L (46-116); ANION GAP 12 (8-16); ASPARTATE AMINO TRANSFERASE 11 U/L (10-37); BILIRUBIN,TOTAL 0.1 MG/DL (0.1-1.0); BLOOD UREA NITROGEN 47 MG/DL (7-18); BUN/CREATININE RATIO 24.9 (6.6-38.0); CALCIUM 8.1 MG/DL (8.5-10.1); CHLORIDE 102 MMOL/L (99-107); CREATININE 1.89 MG/DL (0.40-0.90); GLUCOSE 212 MG/DL (70-104); MAGNESIUM 1.7 MG/DL (1.5-2.4); POTASSIUM 4.5 MMOL/L (3.5-5.1); SODIUM 134 MMOL/L (135-145); TOTAL CARBON DIOXIDE 19.8 MMOL/L (24-32); TOTAL PROTEIN 5.5 G/DL (6.4-8.2); eGFR 29 ML/MIN
[2018-01-29 07:30] VITALS: BP 135/60
[2018-01-29] MEDS: K and/or MAG REPLACEMENT MC SCH (08:00)
[2018-01-29] MEDS: insulin Lispro (HumaLOG) vial - multi-dose SQ SCH ×2 (08:24→13:16)
[2018-01-29] MEDS: varenicline tartrate 0.5mg tablet PO SCH (08:25)
[2018-01-29] MEDS: losartan 50mg tablet PO SCH (08:25)
[2018-01-29] MEDS: amLODIPine 5mg tablet PO SCH (08:25)
[2018-01-29] MEDS: heparin, porcine 5000 units/ml vial SQ SCH (08:25)
[2018-01-29] MEDS: cloNIDine 0.1 mg tablet PO SCH (08:26)
[2018-01-29] MEDS: pantoprazole 40mg Tablet.DR PO SCH (08:26)
[2018-01-29] MEDS: nystatin 15 GM powder TP SCH ×2 (08:26→13:16)
[2018-01-29] MEDS: linagliptin 5mg tablet PO SCH (08:26)
[2018-01-29] MEDS: citalopram 20mg tablet PO SCH (08:26)
[2018-01-29] MEDS: nortriptyline 10mg capsule PO SCH (08:26)
[2018-01-29] MEDS: sucralfate 1 gm tablet PO SCH ×3 (08:26→16:54)
[2018-01-29 11:00] VITALS: BP 105/44
[2018-01-29] MEDS ORDERED: SUMA25TA9 PO (16:11)
[2018-01-29] MEDS: HYDROcodone/acetaminophen 5mg/325mg tablet PO PRN (16:17)
== END 2018-01-29 17:18 | disposition home or self-care (01) | DRG 199 ==
LOC: ER 21:56 → ED HOLD 01-24 08:52 → ER 01-24 11:46 → EDBEDREQ 01-24 17:24 → MED 3N 01-24 18:28
PROVIDERS: ADMIT Family Medicine; ATTEND Family Medicine
DX: I16.0 Hypertensive urgency (principal); N18.4 Chronic kidney disease, stage 4 (severe); E11.22 Type 2 diabetes mellitus with diabetic chronic kidney disease; E11.42 Type 2 diabetes mellitus with diabetic polyneuropathy; E78.5 Hyperlipidemia, unspecified; F32.9 Major depressive disorder, single episode, unspecified; G43.909 Migraine, unspecified, not intractable, without status migrainosus; E78.00 Pure hypercholesterolemia, unspecified; F17.210 Nicotine dependence, cigarettes, uncomplicated; E11.319 Type 2 diabetes mellitus with unspecified diabetic retinopathy without macular edema; E87.5 Hyperkalemia; I12.9 Hypertensive chronic kidney disease with stage 1 through stage 4 chronic kidney disease, or unspecified chronic kidney disease; J45.909 Unspecified asthma, uncomplicated; E11.65 Type 2 diabetes mellitus with hyperglycemia; I25.10 Atherosclerotic heart disease of native coronary artery without angina pectoris; R91.1 Solitary pulmonary nodule; E66.9 Obesity, unspecified; Z88.0 Allergy status to penicillin; Z79.899 Other long term (current) drug therapy; Z90.49 Acquired absence of other specified parts of digestive tract; Z68.35 Body mass index [BMI] 35.0-35.9, adult; Z90.710 Acquired absence of both cervix and uterus; Z82.5 Family history of asthma and other chronic lower respiratory diseases; Z83.3 Family history of diabetes mellitus; Z79.4 Long term (current) use of insulin; Z79.84 Long term (current) use of oral hypoglycemic drugs
CPT/HCPCS: 36415; 70450; 70551; 74176; 80053; 82948; 83036; 83735; 84132; 84484; 85025; 87070; 93005; 95816; 96361; 96374; 96375; 96376; 99285; J0360; J0780; J1200; J1644; J1815; J1940; J2270; J2405; J2765; J7030; Q9963; Q9967

== ENCOUNTER 2018-03-19 07:57 | Inpatient (IN) | payer MEDICAID ==
[~2018-03-19] VITALS: Ht 160 cm; Wt 92.7 kg
[~2018-03-19 07:57] MED LIST changes: -ALB0.5UD IH; -ALBU8HFA PO; -ATOR40TA PO; +CLON-529 PO; -CLON0.1T20 PO; +GLIP5TAB13 PO; -HYDR-3972 PO; -INSU100V36 SQ; -METO25TA6 PO; +SUMA25TA9 PO
[2018-03-19] MEDS ORDERED: ondansetron/PF 4mg/2ml inj IV ONE (08:15)
[2018-03-19] MEDS ORDERED: normal saline 1000ML IV soln IVB ONE ×2 (08:15→09:20)
[2018-03-19 09:16] LABS: ALANINE AMINOTRANSFERASE 15 U/L (12-78); ALBUMIN 2.8 G/DL (3.4-5.0); ALBUMIN/GLOBULIN RATIO 0.6 (1.1-1.5); ALKALINE PHOSPHATASE 119 IU/L (46-116); ANION GAP 13 (8-16); ASPARTATE AMINO TRANSFERASE 16 U/L (10-37); BILIRUBIN,TOTAL 0.3 MG/DL (0.1-1.0); BLOOD UREA NITROGEN 46 MG/DL (7-18); BUN/CREATININE RATIO 18.5 (6.6-38.0); CALCIUM 9.2 MG/DL (8.5-10.1); CHLORIDE 101 MMOL/L (99-107); CREATININE 2.48 MG/DL (0.40-0.90); GLUCOSE 206 MG/DL (70-104); LIPASE 68 U/L (73-393); POTASSIUM 5.2 MMOL/L (3.5-5.1); SODIUM 132 MMOL/L (135-145); TOTAL CARBON DIOXIDE 17.9 MMOL/L (24-32); TOTAL PROTEIN 7.2 G/DL (6.4-8.2); eGFR 21 ML/MIN
[2018-03-19 10:18] LABS: BASOPHILS # (AUTO) 0.1 X10'3 (0-0.2); BASOPHILS % (AUTO) 0.4 % (0-1); EOSINOPHILS # (AUTO) 0.3 X10'3 (0-0.9); EOSINOPHILS % (AUTO) 1.8 % (0-6); HEMATOCRIT 38.4 % (35.0-45.0); HEMOGLOBIN 13.1 g/dl (12.0-16.0); LYMPHOCYTES # (AUTO) 2.1 X10'3 (1.1-4.8); MEAN CORPUSCULAR HEMOGLOBIN 29.6 PG (27.0-31.0); MEAN CORPUSCULAR HGB CONC 34.1 % (33.0-36.5); MEAN CORPUSCULAR VOLUME 86.6 FL (78-98); MEAN PLATELET VOLUME 7.8 FL (7.4-10.4); MONOCYTES # (AUTO) 0.5 X10'3 (0-0.9); NEUTROPHILS # (AUTO) 14.1 X10'3 (1.8-7.7); NEUTROPHILS % (AUTO) 82.8 % (42-75); PLATELET COUNT 343 X10'3 (140-440); RED BLOOD COUNT 4.44 X10'6 (4.20-5.60); RED CELL DISTRIBUTION WIDTH 13.4 % (11.5-14.5); WHITE BLOOD COUNT 17.1 X10'3 (4.5-11.0)
[2018-03-19] MEDS ORDERED: proCHLORperazine 10 MG/2 ml inj IV ONE (11:15)
[2018-03-19] MEDS ORDERED: morphine 4 MG/ML inj SYRINge IV ONE (11:15)
[2018-03-19 11:19] LABS: CLARITY,URINE CLEAR (Clear); COLOR,URINE YELLOW (Yellow); GLUCOSE, URINE 500 mg/dl (Neg); KETONES,URINE TRACE mg/dl (Neg); LEUKOCYTE ESTERASE ,URINE NEGATIVE (Neg); NITRITES, URINE NEGATIVE (Neg); OCCULT BLOOD,URINE SMALL (Neg); PROTEIN,URINE >=300 mg/dl (Neg); UA COLLECTION TYPE CLN CATCH MIDSTREAM; UROBILINOGEN,URINE 0.2 E.U/dL (0.2-1.0)
[2018-03-19 11:23] LABS: RBC,URINE 0-2 /HPF (0-2); WBC,URINE 0-4 /HPF (0-4)
[2018-03-19 11:27] LABS: BACTERIA,URINE NONE SEEN /HPF (Neg); SQUAMOUS EPITHELIAL CELL,UR MODERATE /LPF (FEW)
[2018-03-19 11:28] LABS: FINE GRANULAR CAST 0-3 /LPF (NEGATIVE)
[2018-03-19 11:29] LABS: HYALINE CASTS 0-3 /LPF (NEGATIVE)
[2018-03-19] MEDS ORDERED: magnesium 2GM in 50ml NS 50 ML IV PRN (12:20)
[2018-03-19] MEDS ORDERED: potassium Cl 20 mEq SR tablet PO PRN ×2 (12:20)
[2018-03-19] MEDS ORDERED: HYDROcodone/acetaminophen 5mg/325mg tablet PO PRN (12:20)
[2018-03-19] MEDS ORDERED: acetaminophen 325mg tablet PO PRN ×2 (12:20)
[2018-03-19] MEDS ORDERED: HYDROcodone/acetaminophen 10/325mg tab PO PRN (12:20)
[2018-03-19] MEDS ORDERED: magnesium Cl slow-release 64mg tablet PO PRN (12:20)
[2018-03-19] MEDS ORDERED: morphine 4 MG/ML inj SYRINge IV PRN (12:20)
[2018-03-19] MEDS ORDERED: magnesium 4gm in 100ml NS 100 ML IV PRN (12:20)
[2018-03-19] MEDS ORDERED: potassium Cl 40MEQ/NS 500ml 500 ML IV PRN ×2 (12:20)
[2018-03-19] MEDS ORDERED: mag hydrox/Alum hydrox/simeth 30ml oral suspension PO PRN (12:20)
[2018-03-19] MEDS ORDERED: ciprofloxacin lact 400MG/200ML 200 ML IV ONE (13:03)
[2018-03-19] MEDS ORDERED: LOSA25TA96 PO (13:04)
[2018-03-19] MEDS ORDERED: GLIP5TAB13 PO (13:04)
[2018-03-19] MEDS ORDERED: ATOR40TA PO (13:04)
[2018-03-19] MEDS ORDERED: NORT10CA2 PO (13:04)
[2018-03-19] MEDS ORDERED: ESCI20TA38 PO (13:04)
[2018-03-19] MEDS ORDERED: ASPI81TA52 PO (13:05)
[2018-03-19] MEDS ORDERED: levoFLOXACIN-Levaquin 500mg/D5 100 ML IV SCH (13:10)
[2018-03-19] MEDS ORDERED: ondansetron/PF 4mg/2ml inj IM ONE (13:15)
[2018-03-19] MEDS ORDERED: cloNIDine 0.2 MG/24 HR patch (7 day patch) TD SCH (13:30)
[2018-03-19] MEDS ORDERED: dextrose ORAL solution 15 GM/59 ML bottle PO PRN ×2 (13:30)
[2018-03-19] MEDS ORDERED: MESSAGE TO PHARMACY PO ONE (13:30)
[2018-03-19] MEDS ORDERED: glucagon, human recombinant 1mg kit SUBCUT PRN (13:30)
[2018-03-19] MEDS ORDERED: dextrose 50%-water 50ml dispensing syringe IV PRN ×2 (13:30)
[2018-03-19] MEDS ORDERED: normal saline 1000ml 1,000 ML IV SCH (13:55)
[2018-03-19] MEDS: normal saline 1000ml 1,000 ML IV SCH ×2 (13:58→17:03)
[2018-03-19] MEDS: metroNIDAZOLE-Flagyl 500mg/NS 100 ML IV SCH ×2 (15:18→17:03)
[2018-03-19] MEDS: hydrALAZINE 20mg/ml inj. IV PRN (15:18)
[2018-03-19] MEDS ORDERED: SUMAtriptan 25 MG tablet PO PRN (15:45)
[2018-03-19] MEDS: morphine 4 MG/ML inj SYRINge IV PRN (20:39)
[2018-03-19] MEDS: ondansetron/PF 4mg/2ml inj IV PRN (20:39)
[2018-03-19] MEDS: heparin, porcine 5000 units/ml vial SQ SCH (20:50)
[2018-03-19] MEDS ORDERED: temazepam 15mg capsule PO PRN (21:00)
[2018-03-19] MEDS: varenicline tartrate 0.5mg tablet PO SCH (21:58)
[2018-03-19] MEDS: linagliptin 5mg tablet PO SCH (21:58)
[2018-03-19] MEDS: cloNIDine 0.1 mg tablet PO SCH (21:59)
[2018-03-19] MEDS: aspirin 81mg tablet.DR PO SCH (21:59)
[2018-03-19] MEDS: losartan 25mg tablet PO SCH (21:59)
[2018-03-19] MEDS: diatr meglu/diatrizoate 30ml oral sol.-(3 dose) bottle PO SCH (22:00)
[2018-03-19] MEDS: insulin glargine (Lantus) pen - multi-dose SQ SCH (22:03)
[2018-03-19] MEDS: nortriptyline 10mg capsule PO SCH (22:45)
[2018-03-20] MEDS: metroNIDAZOLE-Flagyl 500mg/NS 100 ML IV SCH ×4 (02:05→23:04)
[2018-03-20] MEDS: normal saline 1000ml 1,000 ML IV SCH (05:24)
[2018-03-20] MEDS: ondansetron/PF 4mg/2ml inj IV PRN (05:24)
[2018-03-20] MEDS: morphine 4 MG/ML inj SYRINge IV PRN ×5 (05:25→21:58)
[2018-03-20 05:57] LABS: BASOPHILS % (AUTO) 0.4 % (0-1); EOSINOPHILS # (AUTO) 0.5 X10'3 (0-0.9); HEMATOCRIT 34.9 % (35.0-45.0); HEMOGLOBIN 12.1 g/dl (12.0-16.0); LYMPHOCYTES # (AUTO) 2.5 X10'3 (1.1-4.8); LYMPHOCYTES % (AUTO) 21.7 % (21-51); MEAN CORPUSCULAR HEMOGLOBIN 30.1 PG (27.0-31.0); MEAN CORPUSCULAR HGB CONC 34.8 % (33.0-36.5); MEAN CORPUSCULAR VOLUME 86.4 FL (78-98); MEAN PLATELET VOLUME 7.8 FL (7.4-10.4); NEUTROPHILS # (AUTO) 7.4 X10'3 (1.8-7.7); NEUTROPHILS % (AUTO) 64.9 % (42-75); PLATELET COUNT 331 X10'3 (140-440); RED BLOOD COUNT 4.03 X10'6 (4.20-5.60); RED CELL DISTRIBUTION WIDTH 13.4 % (11.5-14.5); WHITE BLOOD COUNT 11.4 X10'3 (4.5-11.0)
[2018-03-20 06:06] LABS: PROTHROMBIN TIME 9.9 SECONDS (9.0-12.0)
[2018-03-20 06:11] LABS: ALBUMIN 2.2 G/DL (3.4-5.0); ANION GAP 14 (8-16); BLOOD UREA NITROGEN 44 MG/DL (7-18); BUN/CREATININE RATIO 16.7 (6.6-38.0); CALCIUM 8.5 MG/DL (8.5-10.1); CHLORIDE 105 MMOL/L (99-107); CREATININE 2.64 MG/DL (0.40-0.90); GLUCOSE 196 MG/DL (70-104); MAGNESIUM 1.7 MG/DL (1.5-2.4); POTASSIUM 4.6 MMOL/L (3.5-5.1); SODIUM 139 MMOL/L (135-145); TOTAL CARBON DIOXIDE 20.1 MMOL/L (24-32); eGFR 19 ML/MIN
[2018-03-20] MEDS: diatr meglu/diatrizoate 30ml oral sol.-(3 dose) bottle PO SCH ×2 (07:00→09:32)
[2018-03-20] MEDS: atorvastatin 20mg tablet PO SCH (07:09)
[2018-03-20] MEDS: losartan 25mg tablet PO SCH ×2 (07:27→21:56)
[2018-03-20] MEDS: cloNIDine 0.1 mg tablet PO SCH ×2 (07:27→21:56)
[2018-03-20] MEDS: aspirin 81mg tablet.DR PO SCH ×2 (07:28→21:56)
[2018-03-20] MEDS: citalopram 20mg tablet PO SCH (07:28)
[2018-03-20] MEDS: pantoprazole 40mg Tablet.DR PO SCH (07:28)
[2018-03-20] MEDS: heparin, porcine 5000 units/ml vial SQ SCH ×2 (07:29→21:57)
[2018-03-20] MEDS: levoFLOXACIN-Levaquin 250mg/D5 50 ML IV SCH (07:33)
[2018-03-20] MEDS ORDERED: non-formulary drug (Atorvastatin Calcium* (Lipitor*) 1 TAB) PO SCH (08:00)
[2018-03-20] MEDS ORDERED: glipizide 5mg tablet PO SCH (08:00)
[2018-03-20] MEDS ORDERED: non-formulary drug (Omeprazole 1 CAP) PO SCH (08:00)
[2018-03-20] MEDS: varenicline tartrate 0.5mg tablet PO SCH ×2 (08:00→21:56)
[2018-03-20] MEDS ORDERED: escitalopram 20mg tablet PO SCH (08:00)
[2018-03-20] MEDS: K and/or MAG REPLACEMENT MC SCH (08:00)
[2018-03-20 08:15] VITALS: BP_SYST 208; BP_SYST 228; BP_DIAS 92; BP_DIAS 96
[2018-03-20] MEDS: hydrALAZINE 20mg/ml inj. IV PRN (08:42)
[2018-03-20 08:45] VITALS: BP 171/86
[2018-03-20] MEDS: insulin Lispro (HumaLOG) vial - multi-dose SQ SCH ×2 (09:28→13:56)
[2018-03-20 10:50] VITALS: BP 127/58
[2018-03-20 11:18] VITALS: BP_SYST 115; BP_SYST 120; BP_SYST 142; BP_DIAS 55; BP_DIAS 56; BP_DIAS 57
[2018-03-20] MEDS ORDERED: normal saline 1000ml 1,000 ML IV ONE (16:05)
[2018-03-20 18:00] VITALS: BP 153/91
[2018-03-20] MEDS: insulin glargine (Lantus) pen - multi-dose SQ SCH (21:00)
[2018-03-20] MEDS: nortriptyline 10mg capsule PO SCH (21:55)
[2018-03-20] MEDS: lactobacillus rhamnosus 10,000 MMU CELLS/CAPSULE PO SCH (21:56)
[2018-03-20 22:00] VITALS: BP 157/63
[2018-03-21] VITALS (7 sets, daily range): BP systolic 112–156; BP diastolic 55–80
[2018-03-21] MEDS: morphine 4 MG/ML inj SYRINge IV PRN ×2 (01:47→06:13)
[2018-03-21 05:24] LABS: BASOPHILS % (AUTO) 0.3 % (0-1); EOSINOPHILS # (AUTO) 0.3 X10'3 (0-0.9); EOSINOPHILS % (AUTO) 3.3 % (0-6); HEMATOCRIT 33.1 % (35.0-45.0); HEMOGLOBIN 11.3 g/dl (12.0-16.0); LYMPHOCYTES % (AUTO) 20.4 % (21-51); MEAN CORPUSCULAR HEMOGLOBIN 29.8 PG (27.0-31.0); MEAN CORPUSCULAR HGB CONC 34.2 % (33.0-36.5); MEAN CORPUSCULAR VOLUME 87.1 FL (78-98); MEAN PLATELET VOLUME 7.5 FL (7.4-10.4); MONOCYTES # (AUTO) 0.7 X10'3 (0-0.9); MONOCYTES % (AUTO) 7.5 % (2-12); NEUTROPHILS # (AUTO) 6.6 X10'3 (1.8-7.7); NEUTROPHILS % (AUTO) 68.5 % (42-75); PLATELET COUNT 297 X10'3 (140-440); RED CELL DISTRIBUTION WIDTH 13.5 % (11.5-14.5); WHITE BLOOD COUNT 9.7 X10'3 (4.5-11.0)
[2018-03-21 05:40] LABS: INR 0.9 INR; PROTHROMBIN TIME 9.8 SECONDS (9.0-12.0)
[2018-03-21 05:44] LABS: ALBUMIN 2.1 G/DL (3.4-5.0); ANION GAP 12 (8-16); BLOOD UREA NITROGEN 41 MG/DL (7-18); BUN/CREATININE RATIO 14.5 (6.6-38.0); CALCIUM 8.6 MG/DL (8.5-10.1); CHLORIDE 107 MMOL/L (99-107); CREATININE 2.83 MG/DL (0.40-0.90); GLUCOSE 184 MG/DL (70-104); MAGNESIUM 1.7 MG/DL (1.5-2.4); POTASSIUM 4.4 MMOL/L (3.5-5.1); SODIUM 139 MMOL/L (135-145); TOTAL CARBON DIOXIDE 20.4 MMOL/L (24-32); eGFR 18 ML/MIN
[2018-03-21] MEDS: K and/or MAG REPLACEMENT MC SCH (07:01)
[2018-03-21] MEDS: levoFLOXACIN-Levaquin 250mg/D5 50 ML IV SCH (07:10)
[2018-03-21] MEDS: heparin, porcine 5000 units/ml vial SQ SCH ×2 (07:10→20:12)
[2018-03-21] MEDS: aspirin 81mg tablet.DR PO SCH ×2 (07:10→20:09)
[2018-03-21] MEDS: linagliptin 5mg tablet PO SCH (07:10)
[2018-03-21] MEDS: losartan 25mg tablet PO SCH ×2 (07:11→20:09)
[2018-03-21] MEDS: lactobacillus rhamnosus 10,000 MMU CELLS/CAPSULE PO SCH ×2 (07:11→20:09)
[2018-03-21] MEDS: cloNIDine 0.1 mg tablet PO SCH ×2 (07:11→20:09)
[2018-03-21] MEDS: varenicline tartrate 0.5mg tablet PO SCH ×2 (07:11→20:09)
[2018-03-21] MEDS: pantoprazole 40mg Tablet.DR PO SCH (07:11)
[2018-03-21] MEDS: atorvastatin 20mg tablet PO SCH (07:11)
[2018-03-21] MEDS: citalopram 20mg tablet PO SCH (07:11)
[2018-03-21] MEDS: metroNIDAZOLE-Flagyl 500mg/NS 100 ML IV SCH ×3 (08:32→23:34)
[2018-03-21] MEDS: insulin Lispro (HumaLOG) vial - multi-dose SQ SCH (08:32)
[2018-03-21] MEDS ORDERED: normal saline 1000ml 1,000 ML IV SCH (09:35)
[2018-03-21] MEDS: POTASSIUM CL IV SCH ×2 (15:29→22:00)
[2018-03-21] MEDS: NORMAL SALINE IV SCH ×2 (15:29→22:00)
[2018-03-21] MEDS: nortriptyline 10mg capsule PO SCH (20:09)
[2018-03-21] MEDS: insulin glargine (Lantus) pen - multi-dose SQ SCH (20:19)
[2018-03-22] MEDS: POTASSIUM CL IV SCH ×2 (01:36→09:51)
[2018-03-22] MEDS: NORMAL SALINE IV SCH ×2 (01:36→09:51)
[2018-03-22 05:25] LABS: BASOPHILS # (AUTO) 0.1 X10'3 (0-0.2); BASOPHILS % (AUTO) 1.2 % (0-1); EOSINOPHILS # (AUTO) 0.5 X10'3 (0-0.9); EOSINOPHILS % (AUTO) 6.7 % (0-6); HEMATOCRIT 28.7 % (35.0-45.0); HEMOGLOBIN 9.9 g/dl (12.0-16.0); LYMPHOCYTES # (AUTO) 2.2 X10'3 (1.1-4.8); LYMPHOCYTES % (AUTO) 29.8 % (21-51); MEAN CORPUSCULAR HEMOGLOBIN 29.9 PG (27.0-31.0); MEAN CORPUSCULAR HGB CONC 34.3 % (33.0-36.5); MEAN CORPUSCULAR VOLUME 87.1 FL (78-98); MEAN PLATELET VOLUME 7.9 FL (7.4-10.4); MONOCYTES # (AUTO) 0.5 X10'3 (0-0.9); MONOCYTES % (AUTO) 6.4 % (2-12); NEUTROPHILS # (AUTO) 4.2 X10'3 (1.8-7.7); NEUTROPHILS % (AUTO) 55.9 % (42-75); PLATELET COUNT 229 X10'3 (140-440); RED CELL DISTRIBUTION WIDTH 13.2 % (11.5-14.5); WHITE BLOOD COUNT 7.5 X10'3 (4.5-11.0)
[2018-03-22 05:42] LABS: PROTHROMBIN TIME 10.3 SECONDS (9.0-12.0)
[2018-03-22 05:49] LABS: ALBUMIN 1.8 G/DL (3.4-5.0); ANION GAP 12 (8-16); BLOOD UREA NITROGEN 39 MG/DL (7-18); BUN/CREATININE RATIO 16.2 (6.6-38.0); CALCIUM 8.3 MG/DL (8.5-10.1); CHLORIDE 111 MMOL/L (99-107); CREATININE 2.41 MG/DL (0.40-0.90); GLUCOSE 126 MG/DL (70-104); MAGNESIUM 1.6 MG/DL (1.5-2.4); POTASSIUM 4.4 MMOL/L (3.5-5.1); SODIUM 142 MMOL/L (135-145); TOTAL CARBON DIOXIDE 19.3 MMOL/L (24-32); eGFR 22 ML/MIN
[2018-03-22 06:00] VITALS: BP 129/66
[2018-03-22 08:00] VITALS: BP_SYST 124; BP_SYST 134; BP_SYST 135; BP_DIAS 41; BP_DIAS 58; BP_DIAS 61
[2018-03-22] MEDS: atorvastatin 20mg tablet PO SCH (08:00)
[2018-03-22] MEDS: K and/or MAG REPLACEMENT MC SCH (08:00)
[2018-03-22] MEDS: metroNIDAZOLE-Flagyl 500mg/NS 100 ML IV SCH ×3 (09:25→23:54)
[2018-03-22] MEDS: lactobacillus rhamnosus 10,000 MMU CELLS/CAPSULE PO SCH ×2 (09:27→20:25)
[2018-03-22] MEDS: varenicline tartrate 0.5mg tablet PO SCH ×2 (09:27→20:25)
[2018-03-22] MEDS: losartan 25mg tablet PO SCH ×2 (09:28→20:25)
[2018-03-22] MEDS: pantoprazole 40mg Tablet.DR PO SCH (09:28)
[2018-03-22] MEDS: cloNIDine 0.1 mg tablet PO SCH ×2 (09:28→20:25)
[2018-03-22] MEDS: linagliptin 5mg tablet PO SCH (09:28)
[2018-03-22] MEDS: aspirin 81mg tablet.DR PO SCH ×2 (09:28→20:25)
[2018-03-22] MEDS: citalopram 20mg tablet PO SCH (09:29)
[2018-03-22] MEDS: heparin, porcine 5000 units/ml vial SQ SCH ×2 (09:30→20:25)
[2018-03-22] MEDS: levoFLOXACIN-Levaquin 250mg/D5 50 ML IV SCH (09:52)
[2018-03-22 10:00] VITALS: BP 162/72
[2018-03-22] MEDS: normal saline 1000ml 1,000 ML IV SCH (12:38)
[2018-03-22] MEDS: furosemide 20 MG/2 ML vial IV SCH (13:15)
[2018-03-22 18:00] VITALS: BP 135/63
[2018-03-22] MEDS: nortriptyline 10mg capsule PO SCH (20:25)
[2018-03-22] MEDS: insulin glargine (Lantus) pen - multi-dose SQ SCH (21:00)
[2018-03-22 22:00] VITALS: BP 170/68
[2018-03-22] MEDS: dextrose 5%-normal saline 1,000 ML IV SCH (23:54)
[2018-03-23] MEDS: normal saline 1000ml 1,000 ML IV SCH ×2 (02:43→16:41)
[2018-03-23 05:48] LABS: BASOPHILS % (AUTO) 0.6 % (0-1); EOSINOPHILS # (AUTO) 0.6 X10'3 (0-0.9); EOSINOPHILS % (AUTO) 8.1 % (0-6); HEMOGLOBIN 9.9 g/dl (12.0-16.0); LYMPHOCYTES # (AUTO) 1.8 X10'3 (1.1-4.8); LYMPHOCYTES % (AUTO) 24.9 % (21-51); MEAN CORPUSCULAR HEMOGLOBIN 29.8 PG (27.0-31.0); MEAN CORPUSCULAR HGB CONC 34.1 % (33.0-36.5); MEAN CORPUSCULAR VOLUME 87.4 FL (78-98); MEAN PLATELET VOLUME 7.6 FL (7.4-10.4); MONOCYTES # (AUTO) 0.4 X10'3 (0-0.9); MONOCYTES % (AUTO) 5.5 % (2-12); NEUTROPHILS # (AUTO) 4.5 X10'3 (1.8-7.7); NEUTROPHILS % (AUTO) 60.9 % (42-75); PLATELET COUNT 264 X10'3 (140-440); RED BLOOD COUNT 3.32 X10'6 (4.20-5.60); RED CELL DISTRIBUTION WIDTH 12.9 % (11.5-14.5); WHITE BLOOD COUNT 7.4 X10'3 (4.5-11.0)
[2018-03-23] MEDS: losartan 25mg tablet PO SCH ×2 (05:58→21:21)
[2018-03-23] MEDS: cloNIDine 0.1 mg tablet PO SCH ×2 (05:58→21:17)
[2018-03-23 06:00] VITALS: BP 174/73
[2018-03-23 06:27] LABS: ANION GAP 13 (8-16); BLOOD UREA NITROGEN 34 MG/DL (7-18); BUN/CREATININE RATIO 16.7 (6.6-38.0); CALCIUM 8.3 MG/DL (8.5-10.1); CHLORIDE 108 MMOL/L (99-107); CREATININE 2.03 MG/DL (0.40-0.90); GLUCOSE 127 MG/DL (70-104); MAGNESIUM 1.5 MG/DL (1.5-2.4); POTASSIUM 4.1 MMOL/L (3.5-5.1); SODIUM 140 MMOL/L (135-145); TOTAL CARBON DIOXIDE 18.7 MMOL/L (24-32); eGFR 26 ML/MIN
[2018-03-23 06:30] LABS: PROTHROMBIN TIME 10.3 SECONDS (9.0-12.0)
[2018-03-23] MEDS: atorvastatin 20mg tablet PO SCH (08:00)
[2018-03-23] MEDS: K and/or MAG REPLACEMENT MC SCH (08:00)
[2018-03-23] MEDS: aspirin 81mg tablet.DR PO SCH ×2 (08:12→21:21)
[2018-03-23] MEDS: lactobacillus rhamnosus 10,000 MMU CELLS/CAPSULE PO SCH ×2 (08:13→21:22)
[2018-03-23] MEDS: metroNIDAZOLE-Flagyl 500mg/NS 100 ML IV SCH (08:13)
[2018-03-23] MEDS: pantoprazole 40mg Tablet.DR PO SCH (08:13)
[2018-03-23] MEDS: levoFLOXACIN-Levaquin 250mg/D5 50 ML IV SCH (08:13)
[2018-03-23] MEDS: citalopram 20mg tablet PO SCH (08:13)
[2018-03-23] MEDS: heparin, porcine 5000 units/ml vial SQ SCH ×2 (08:14→21:22)
[2018-03-23] MEDS: furosemide 20 MG/2 ML vial IV SCH (08:14)
[2018-03-23] MEDS: varenicline tartrate 0.5mg tablet PO SCH ×2 (08:15→21:22)
[2018-03-23] MEDS: linagliptin 5mg tablet PO SCH (08:15)
[2018-03-23 08:30] VITALS: BP 139/68
[2018-03-23] MEDS: dextrose 5%-normal saline 1,000 ML IV SCH (10:39)
[2018-03-23 11:37] VITALS: BP 189/79
[2018-03-23] MEDS: hydrALAZINE 20mg/ml inj. IV PRN ×2 (11:57→17:32)
[2018-03-23] MEDS ORDERED: metroNIDAZOLE 500mg tablet PO SCH (16:00)
[2018-03-23 18:00] VITALS: BP 175/91
[2018-03-23] MEDS: magnesium hydroxide 30ml (MOM) UD suspension PO PRN (18:24)
[2018-03-23] MEDS: insulin Lispro (HumaLOG) vial - multi-dose SQ SCH (19:03)
[2018-03-23] MEDS: insulin glargine (Lantus) pen - multi-dose SQ SCH (21:12)
[2018-03-23] MEDS: nortriptyline 10mg capsule PO SCH (21:22)
[2018-03-23 22:00] VITALS: BP 176/85
[2018-03-24] MEDS: dextrose 5%-normal saline 1,000 ML IV SCH ×2 (00:15→09:37)
[2018-03-24 01:49] VITALS: BP 150/82
[2018-03-24 05:57] LABS: PROTHROMBIN TIME 9.9 SECONDS (9.0-12.0)
[2018-03-24 06:00] VITALS: BP 136/69
[2018-03-24 06:05] LABS: BASOPHILS % (AUTO) 0.4 % (0-1); EOSINOPHILS # (AUTO) 0.7 X10'3 (0-0.9); EOSINOPHILS % (AUTO) 7.5 % (0-6); HEMATOCRIT 33.3 % (35.0-45.0); HEMOGLOBIN 11.4 g/dl (12.0-16.0); LYMPHOCYTES % (AUTO) 22.6 % (21-51); MEAN CORPUSCULAR HEMOGLOBIN 29.8 PG (27.0-31.0); MEAN CORPUSCULAR HGB CONC 34.4 % (33.0-36.5); MEAN CORPUSCULAR VOLUME 86.7 FL (78-98); MEAN PLATELET VOLUME 7.3 FL (7.4-10.4); MONOCYTES # (AUTO) 0.5 X10'3 (0-0.9); MONOCYTES % (AUTO) 6.1 % (2-12); NEUTROPHILS # (AUTO) 5.5 X10'3 (1.8-7.7); NEUTROPHILS % (AUTO) 63.4 % (42-75); PLATELET COUNT 298 X10'3 (140-440); RED BLOOD COUNT 3.84 X10'6 (4.20-5.60); RED CELL DISTRIBUTION WIDTH 13.1 % (11.5-14.5); WHITE BLOOD COUNT 8.8 X10'3 (4.5-11.0)
[2018-03-24 06:52] LABS: ALBUMIN 1.9 G/DL (3.4-5.0); ANION GAP 13 (8-16); BLOOD UREA NITROGEN 30 MG/DL (7-18); BUN/CREATININE RATIO 17.3 (6.6-38.0); CALCIUM 7.7 MG/DL (8.5-10.1); CHLORIDE 105 MMOL/L (99-107); CREATININE 1.73 MG/DL (0.40-0.90); GLUCOSE 203 MG/DL (70-104); MAGNESIUM 1.3 MG/DL (1.5-2.4); POTASSIUM 4.3 MMOL/L (3.5-5.1); SODIUM 135 MMOL/L (135-145); TOTAL CARBON DIOXIDE 17.1 MMOL/L (24-32); eGFR 32 ML/MIN
[2018-03-24] MEDS: furosemide 20 MG/2 ML vial IV SCH (07:05)
[2018-03-24] MEDS: normal saline 1000ml 1,000 ML IV SCH (07:19)
[2018-03-24] MEDS: pantoprazole 40mg Tablet.DR PO SCH (07:51)
[2018-03-24] MEDS: linagliptin 5mg tablet PO SCH (07:52)
[2018-03-24] MEDS: atorvastatin 20mg tablet PO SCH (07:54)
[2018-03-24] MEDS: cloNIDine 0.1 mg tablet PO SCH (07:55)
[2018-03-24] MEDS: citalopram 20mg tablet PO SCH (07:56)
[2018-03-24] MEDS: lactobacillus rhamnosus 10,000 MMU CELLS/CAPSULE PO SCH (07:57)
[2018-03-24] MEDS: aspirin 81mg tablet.DR PO SCH (07:58)
[2018-03-24] MEDS: losartan 25mg tablet PO SCH (07:58)
[2018-03-24] MEDS: magnesium hydroxide 30ml (MOM) UD suspension PO PRN (07:59)
[2018-03-24 08:00] VITALS: BP_SYST 124; BP_SYST 137; BP_SYST 138; BP_DIAS 62; BP_DIAS 67; BP_DIAS 76
[2018-03-24] MEDS: K and/or MAG REPLACEMENT MC SCH (08:00)
[2018-03-24] MEDS: heparin, porcine 5000 units/ml vial SQ SCH (08:03)
[2018-03-24] MEDS: varenicline tartrate 0.5mg tablet PO SCH (08:15)
[2018-03-24] MEDS: insulin Lispro (HumaLOG) vial - multi-dose SQ SCH ×2 (08:23→13:55)
[2018-03-24 08:54] VITALS: BP 171/91
[2018-03-24] MEDS ORDERED: potassium Cl 20 mEq SR tablet PO PRN ×2 (09:10)
[2018-03-24] MEDS ORDERED: magnesium 4gm in 100ml NS 100 ML IV PRN (09:10)
[2018-03-24] MEDS ORDERED: magnesium Cl slow-release 64mg tablet PO PRN (09:10)
[2018-03-24] MEDS ORDERED: polyethylene glycol 3350 17gm powd pack PO ONE (09:10)
[2018-03-24] MEDS ORDERED: potassium Cl 40MEQ/NS 500ml 500 ML IV PRN ×2 (09:10)
[2018-03-24] MEDS ORDERED: magnesium 2GM in 50ml NS 50 ML IV PRN (09:10)
[2018-03-24 10:00] VITALS: BP 124/62
[2018-03-24] MEDS ORDERED: levoFLOXACIN 250mg tablet PO SCH (11:00)
[2018-03-24] MEDS ORDERED: mineral oil 133ml enema RC PRN (11:50)
[2018-03-24] MEDS ORDERED: MAGN64TA10 PO (13:57)
[2018-03-24] MEDS ORDERED: FURO-150 PO (13:57)
== END 2018-03-24 14:15 | disposition home or self-care (01) | DRG 247 ==
LOC: ER 07:57 → ED HOLD 12:19 → EDBEDREQSVC 20:02 → EDBEDREQ 20:02 → ORTHO 4S 03-20 08:26
PROVIDERS: ADMIT Family Medicine; ATTEND Internal Medicine
PROC: 0D9670Z Drainage of Stomach with Drainage Device, Via Natural or Artificial Opening (ICD-10-PCS; principal; 2018-03-19)
DX: K56.609 Unspecified intestinal obstruction, unspecified as to partial versus complete obstruction (principal); R18.8 Other ascites; E11.22 Type 2 diabetes mellitus with diabetic chronic kidney disease; E11.42 Type 2 diabetes mellitus with diabetic polyneuropathy; N17.9 Acute kidney failure, unspecified; E87.1 Hypo-osmolality and hyponatremia; N18.4 Chronic kidney disease, stage 4 (severe); J44.9 Chronic obstructive pulmonary disease, unspecified; D72.829 Elevated white blood cell count, unspecified; E78.00 Pure hypercholesterolemia, unspecified; E78.5 Hyperlipidemia, unspecified; E86.0 Dehydration; F17.210 Nicotine dependence, cigarettes, uncomplicated; I12.9 Hypertensive chronic kidney disease with stage 1 through stage 4 chronic kidney disease, or unspecified chronic kidney disease; I16.1 Hypertensive emergency; I25.10 Atherosclerotic heart disease of native coronary artery without angina pectoris; K56.7 Ileus, unspecified; Z82.5 Family history of asthma and other chronic lower respiratory diseases; Z83.3 Family history of diabetes mellitus; Z90.710 Acquired absence of both cervix and uterus; Z88.0 Allergy status to penicillin; Z98.51 Tubal ligation status; Z79.899 Other long term (current) drug therapy; Z79.82 Long term (current) use of aspirin
CPT/HCPCS: 36415; 71046; 74022; 74176; 76775; 80048; 80053; 81001; 82570; 82948; 83605; 83690; 83735; 84133; 84300; 85025; 85610; 87040; 87070; 93005; 96361; 96374; 96375; 97116; 97161; 99285; A4565; A6446; J0360; J0744; J0780; J1644; J1815; J1940; J1956; J2270; J2405; J3480; J3490; J7030; J7042; Q9963

== ENCOUNTER 2018-03-24 16:45 | Emergency (ER) | payer MEDICAID ==
[~2018-03-24] VITALS: Ht 160 cm; Wt 98.0 kg
[~2018-03-24 16:45] MED LIST changes: +ASPI81TA52 PO; +ATOR40TA PO; +FURO-150 PO; +MAGN64TA10 PO; +NORT10CA2 PO; -NORT10CA81 PO
[2018-03-24] MEDS ORDERED: ondansetron 4mg rapidly disintigrating tab PO ONE (18:55)
[2018-03-24 19:21] VITALS: BP 171/108
== END 2018-03-24 19:24 | disposition home or self-care (01) ==
LOC: ER 16:46
DX: K56.7 Ileus, unspecified (principal); K59.00 Constipation, unspecified; I12.9 Hypertensive chronic kidney disease with stage 1 through stage 4 chronic kidney disease, or unspecified chronic kidney disease; N18.9 Chronic kidney disease, unspecified; N17.9 Acute kidney failure, unspecified; E11.22 Type 2 diabetes mellitus with diabetic chronic kidney disease; E87.1 Hypo-osmolality and hyponatremia; Z46.59 Encounter for fitting and adjustment of other gastrointestinal appliance and device; E78.00 Pure hypercholesterolemia, unspecified; J45.909 Unspecified asthma, uncomplicated; E11.40 Type 2 diabetes mellitus with diabetic neuropathy, unspecified; I25.10 Atherosclerotic heart disease of native coronary artery without angina pectoris; Z88.0 Allergy status to penicillin; Z79.82 Long term (current) use of aspirin; Z79.899 Other long term (current) drug therapy
CPT/HCPCS: 99284

== ENCOUNTER 2018-03-28 00:43 | Inpatient (IN) | payer MEDICAID ==
[~2018-03-28] VITALS: Ht 160 cm; Wt 92.0 kg
[2018-03-28] VITALS (21 sets, daily range): BP systolic 141–189; BP diastolic 55–96
[2018-03-28 02:12] LABS: ALANINE AMINOTRANSFERASE 35 U/L (12-78); ALBUMIN 2.8 G/DL (3.4-5.0); ALBUMIN/GLOBULIN RATIO 0.7 (1.1-1.5); ALKALINE PHOSPHATASE 93 IU/L (46-116); ANION GAP 14 (8-16); ASPARTATE AMINO TRANSFERASE 23 U/L (10-37); BILIRUBIN,TOTAL 0.3 MG/DL (0.1-1.0); BLOOD UREA NITROGEN 31 MG/DL (7-18); BUN/CREATININE RATIO 12.4 (6.6-38.0); CALCIUM 8.8 MG/DL (8.5-10.1); CHLORIDE 102 MMOL/L (99-107); CREATININE 2.51 MG/DL (0.40-0.90); GLUCOSE 137 MG/DL (70-104); LIPASE 330 U/L (73-393); POTASSIUM 3.9 MMOL/L (3.5-5.1); SODIUM 137 MMOL/L (135-145); TOTAL CARBON DIOXIDE 20.6 MMOL/L (24-32); eGFR 21 ML/MIN
[2018-03-28 02:17] LABS: BASOPHILS # (AUTO) 0.1 X10'3 (0-0.2); EOSINOPHILS # (AUTO) 0.8 X10'3 (0-0.9); EOSINOPHILS % (AUTO) 5.4 % (0-6); HEMOGLOBIN 13.4 g/dl (12.0-16.0); LYMPHOCYTES # (AUTO) 3.4 X10'3 (1.1-4.8); MEAN CORPUSCULAR HEMOGLOBIN 30.1 PG (27.0-31.0); MEAN CORPUSCULAR HGB CONC 34.5 % (33.0-36.5); MEAN CORPUSCULAR VOLUME 87.4 FL (78-98); MEAN PLATELET VOLUME 7.9 FL (7.4-10.4); MONOCYTES # (AUTO) 0.9 X10'3 (0-0.9); MONOCYTES % (AUTO) 5.6 % (2-12); NEUTROPHILS # (AUTO) 10.1 X10'3 (1.8-7.7); PLATELET COUNT 480 X10'3 (140-440); RED BLOOD COUNT 4.46 X10'6 (4.20-5.60); RED CELL DISTRIBUTION WIDTH 13.3 % (11.5-14.5); WHITE BLOOD COUNT 15.3 X10'3 (4.5-11.0)
[2018-03-28] MEDS ORDERED: cloNIDine 0.1 mg tablet PO ONE (02:35)
[2018-03-28] MEDS ORDERED: metoclopramide 5 mg/ml inj IV ONE (03:05)
[2018-03-28] MEDS ORDERED: normal saline 1000ML IV soln IVB ONE (03:05)
[2018-03-28] MEDS ORDERED: hydrALAZINE 20mg/ml inj. IV ONE (04:05)
[2018-03-28] MEDS ORDERED: magnesium 4gm in 100ml NS 100 ML IV PRN (04:25)
[2018-03-28] MEDS ORDERED: magnesium 2GM in 50ml NS 50 ML IV PRN (04:25)
[2018-03-28] MEDS ORDERED: potassium Cl 40MEQ/NS 500ml 500 ML IV PRN ×2 (04:25)
[2018-03-28] MEDS ORDERED: acetaminophen 325mg tablet PO PRN (04:25)
[2018-03-28] MEDS ORDERED: magnesium Cl slow-release 64mg tablet PO PRN (04:25)
[2018-03-28] MEDS ORDERED: potassium Cl 20 mEq SR tablet PO PRN ×2 (04:25)
[2018-03-28] MEDS ORDERED: morphine 4 MG/ML inj SYRINge IV PRN ×2 (04:25→17:15)
[2018-03-28] MEDS ORDERED: dextrose 50%-water 50ml dispensing syringe IV PRN ×2 (05:15)
[2018-03-28] MEDS ORDERED: hydrALAZINE 20mg/ml inj. IV PRN (05:15)
[2018-03-28] MEDS ORDERED: dextrose ORAL solution 15 GM/59 ML bottle PO PRN ×2 (05:15)
[2018-03-28] MEDS ORDERED: MESSAGE TO PHARMACY PO ONE (05:15)
[2018-03-28] MEDS ORDERED: glucagon, human recombinant 1mg kit SUBCUT PRN (05:15)
[2018-03-28] MEDS: normal saline 1000ml 1,000 ML IV SCH ×2 (05:30→15:00)
[2018-03-28 06:33] LABS: HEMOGLOBIN A1C 8.7 % (4.5-6.2)
[2018-03-28] MEDS ORDERED: enoxaparin 40mg/0.4ml syringe SUBCUT SCH (08:00)
[2018-03-28] MEDS ORDERED: heparin, porcine 5000 units/ml vial SQ SCH (08:00)
[2018-03-28] MEDS: K and/or MAG REPLACEMENT MC SCH (08:00)
[2018-03-28 09:12] LABS: PARTIAL THROMBOPLASTIN TIME 25 SECONDS (22-32)
[2018-03-28] MEDS: proCHLORperazine 10 MG/2 ml inj IV PRN ×2 (11:28→20:02)
[2018-03-28] MEDS: hydrALAZINE 20mg/ml inj. IV PRN (15:33)
[2018-03-28] MEDS ORDERED: BUPIVAcaine/PF 2.5 mg/ml (0.25%) 30ml vial ONE (16:25)
[2018-03-28] MEDS: morphine/NS 5 mg/ml CADD 50 ML IV SCH ×4 (17:00→23:00)
[2018-03-28] MEDS ORDERED: sevoflurane 250ml liquid IH ONE (17:11)
[2018-03-28] MEDS ORDERED: ringers solution, lacted 1,000 ML IV SCH (17:15)
[2018-03-28] MEDS ORDERED: ondansetron/PF 4mg/2ml inj IV PRN (17:15)
[2018-03-28] MEDS ORDERED: rocuronium 10mg/ml inj IV ONE (17:17)
[2018-03-28] MEDS ORDERED: fentaNYL/PF 50MCG/1 ML 2ML syringe ONE ×2 (17:17→19:30)
[2018-03-28] MEDS ORDERED: propofol inj 20 ML IV ONE (17:17)
[2018-03-28] MEDS ORDERED: ceFOXitin 1000 MG inj ONE (18:54)
[2018-03-28] MEDS: insulin Lispro (HumaLOG) vial - multi-dose SQ SCH (19:50)
[2018-03-28] MEDS: ondansetron/PF 4mg/2ml inj IV PRN (19:51)
[2018-03-28] MEDS ORDERED: insulin Lispro (HumaLOG) vial - multi-dose SQ SCH (19:55)
[2018-03-28] MEDS ORDERED: insulin Lispro (HumaLOG) vial - multi-dose SQ ONE (19:55)
[2018-03-28] MEDS ORDERED: labetalol 20mg/4ml (5mg/ml) syringe IV ONE (20:00)
[2018-03-28] MEDS ORDERED: proCHLORperazine 10 MG/2 ml inj IV PRN (20:00)
[2018-03-28] MEDS: morphine 4 MG/ML inj SYRINge IV PRN ×4 (20:06→20:51)
[2018-03-28] MEDS ORDERED: LIDOcaine 2% (20mg/ml) 5ml vial ONE (20:07)
[2018-03-28] MEDS ORDERED: glycopyrrolate 0.2mg/ml inj ONE (20:07)
[2018-03-28] MEDS ORDERED: neostigmine methylsulfate 1 MG/ML 10ml vial ONE (20:07)
[2018-03-28] MEDS ORDERED: labetalol 5mg/ml 20ml inj. IV ONE (20:07)
[2018-03-28] MEDS ORDERED: morphine/NS 5 mg/ml CADD 50 ML IV SCH (20:20)
[2018-03-28] MEDS ORDERED: CADD PCA waste documentation MC SCH (21:00)
[2018-03-28] MEDS: insulin glargine (Lantus) pen - multi-dose SQ SCH (21:50)
[2018-03-29] VITALS (20 sets, daily range): BP systolic 94–173; BP diastolic 50–70
[2018-03-29] MEDS: hydrALAZINE 20mg/ml inj. IV PRN (00:14)
[2018-03-29] MEDS: normal saline 1000ml 1,000 ML IV SCH ×3 (00:19→17:41)
[2018-03-29] MEDS: morphine/NS 5 mg/ml CADD 50 ML IV SCH ×12 (01:00→23:00)
[2018-03-29] MEDS: insulin Lispro (HumaLOG) vial - multi-dose SQ SCH ×2 (02:22→08:24)
[2018-03-29 02:29] LABS: BASOPHILS % (AUTO) 0.1 % (0-1); EOSINOPHILS % (AUTO) 0 % (0-6); HEMATOCRIT 39.9 % (35.0-45.0); HEMOGLOBIN 13.4 g/dl (12.0-16.0); LYMPHOCYTES % (AUTO) 6.8 % (21-51); MEAN CORPUSCULAR HEMOGLOBIN 29.8 PG (27.0-31.0); MEAN CORPUSCULAR HGB CONC 33.7 % (33.0-36.5); MEAN CORPUSCULAR VOLUME 88.6 FL (78-98); MEAN PLATELET VOLUME 7.1 FL (7.4-10.4); MONOCYTES # (AUTO) 0.7 X10'3 (0-0.9); NEUTROPHILS # (AUTO) 12.7 X10'3 (1.8-7.7); NEUTROPHILS % (AUTO) 88.1 % (42-75); PLATELET COUNT 525 X10'3 (140-440); RED CELL DISTRIBUTION WIDTH 13.8 % (11.5-14.5); WHITE BLOOD COUNT 14.4 X10'3 (4.5-11.0)
[2018-03-29 02:40] LABS: ALANINE AMINOTRANSFERASE 22 U/L (12-78); ALBUMIN 1.9 G/DL (3.4-5.0); ALBUMIN/GLOBULIN RATIO 0.6 (1.1-1.5); ALKALINE PHOSPHATASE 62 IU/L (46-116); ANION GAP 12 (8-16); ASPARTATE AMINO TRANSFERASE 13 U/L (10-37); BILIRUBIN,TOTAL 0.3 MG/DL (0.1-1.0); BLOOD UREA NITROGEN 31 MG/DL (7-18); BUN/CREATININE RATIO 11.9 (6.6-38.0); CALCIUM 7.7 MG/DL (8.5-10.1); CHLORIDE 109 MMOL/L (99-107); GLUCOSE 251 MG/DL (70-104); MAGNESIUM 1.8 MG/DL (1.5-2.4); PHOSPHORUS 5.9 MG/DL (2.3-4.5); POTASSIUM 3.9 MMOL/L (3.5-5.1); SODIUM 140 MMOL/L (135-145); TOTAL CARBON DIOXIDE 18.7 MMOL/L (24-32); eGFR 20 ML/MIN
[2018-03-29] MEDS: K and/or MAG REPLACEMENT MC SCH (08:00)
[2018-03-29] MEDS ORDERED: normal saline 1000ml 1,000 ML IV ONE (10:10)
[2018-03-29] MEDS: proCHLORperazine 10 MG/2 ml inj IV PRN (13:22)
[2018-03-29] MEDS ORDERED: Dextrose 10%-water IV solution 1,000 ML IV PRN (17:00)
[2018-03-29 17:17] LABS: ALANINE AMINOTRANSFERASE 15 U/L (12-78); ALBUMIN 1.6 G/DL (3.4-5.0); ALBUMIN/GLOBULIN RATIO 0.5 (1.1-1.5); ALKALINE PHOSPHATASE 54 IU/L (46-116); ANION GAP 10 (8-16); ASPARTATE AMINO TRANSFERASE 14 U/L (10-37); BILIRUBIN,TOTAL 0.2 MG/DL (0.1-1.0); BLOOD UREA NITROGEN 35 MG/DL (7-18); BUN/CREATININE RATIO 10.1 (6.6-38.0); CALCIUM 7.3 MG/DL (8.5-10.1); CHLORIDE 111 MMOL/L (99-107); CREATININE 3.46 MG/DL (0.40-0.90); GLUCOSE 138 MG/DL (70-104); MAGNESIUM 1.7 MG/DL (1.5-2.4); PHOSPHORUS 6.4 MG/DL (2.3-4.5); POTASSIUM 4.3 MMOL/L (3.5-5.1); PREALBUMIN 14.2 MG/DL (19-36); SODIUM 140 MMOL/L (135-145); TOTAL PROTEIN 4.7 G/DL (6.4-8.2); TRIGLYCERIDES 58 MG/DL (20-135); eGFR 14 ML/MIN
[2018-03-29] MEDS ORDERED: fat emulsion IV 100 ML, MVI, adult No.4 with vit. K 10 ML, Trace element-5 inj. 1 ML in... IV SCH ×4 (18:00)
[2018-03-29] MEDS ORDERED: dextrose 5%-normal saline 1,000 ML IV SCH (18:45)
[2018-03-29] MEDS: insulin glargine (Lantus) pen - multi-dose SQ SCH (21:24)
[2018-03-30] MEDS: morphine/NS 5 mg/ml CADD 50 ML IV SCH ×12 (01:00→23:00)
[2018-03-30 05:41] LABS: ALANINE AMINOTRANSFERASE 16 U/L (12-78); ALBUMIN 1.5 G/DL (3.4-5.0); ALBUMIN/GLOBULIN RATIO 0.5 (1.1-1.5); ALKALINE PHOSPHATASE 65 IU/L (46-116); ANION GAP 13 (8-16); ASPARTATE AMINO TRANSFERASE 16 U/L (10-37); BILIRUBIN,TOTAL 0.2 MG/DL (0.1-1.0); BLOOD UREA NITROGEN 41 MG/DL (7-18); BUN/CREATININE RATIO 9.9 (6.6-38.0); CALCIUM 7.7 MG/DL (8.5-10.1); CHLORIDE 109 MMOL/L (99-107); CREATININE 4.13 MG/DL (0.40-0.90); GLUCOSE 363 MG/DL (70-104); MAGNESIUM 1.9 MG/DL (1.5-2.4); PHOSPHORUS 6.9 MG/DL (2.3-4.5); POTASSIUM 4.5 MMOL/L (3.5-5.1); SODIUM 139 MMOL/L (135-145); TOTAL CARBON DIOXIDE 16.9 MMOL/L (24-32); TOTAL PROTEIN 4.8 G/DL (6.4-8.2); eGFR 12 ML/MIN
[2018-03-30 08:00] VITALS: BP 151/69
[2018-03-30] MEDS: K and/or MAG REPLACEMENT MC SCH (08:00)
[2018-03-30 08:26] VITALS: BP 151/69
[2018-03-30] MEDS: normal saline 1000ml 1,000 ML IV SCH ×3 (09:59→18:14)
[2018-03-30] MEDS: insulin regular, human vial - multi-dose SQ SCH ×3 (10:05→20:14)
[2018-03-30 11:00] VITALS: BP 159/77
[2018-03-30] MEDS ORDERED: normal saline 1000ml 1,000 ML IVB ONE (11:39)
[2018-03-30 14:44] LABS: BASOPHILS % (AUTO) 0.1 % (0-1); EOSINOPHILS % (AUTO) 0 % (0-6); HEMATOCRIT 27.9 % (35.0-45.0); HEMOGLOBIN 9.4 g/dl (12.0-16.0); LYMPHOCYTES # (AUTO) 0.6 X10'3 (1.1-4.8); LYMPHOCYTES % (AUTO) 2.9 % (21-51); MEAN CORPUSCULAR HEMOGLOBIN 29.9 PG (27.0-31.0); MEAN CORPUSCULAR HGB CONC 33.8 % (33.0-36.5); MEAN CORPUSCULAR VOLUME 88.5 FL (78-98); MEAN PLATELET VOLUME 7.3 FL (7.4-10.4); MONOCYTES # (AUTO) 0.9 X10'3 (0-0.9); MONOCYTES % (AUTO) 4.3 % (2-12); NEUTROPHILS # (AUTO) 18.5 X10'3 (1.8-7.7); NEUTROPHILS % (AUTO) 92.7 % (42-75); PLATELET COUNT 302 X10'3 (140-440); RED BLOOD COUNT 3.15 X10'6 (4.20-5.60); RED CELL DISTRIBUTION WIDTH 13.8 % (11.5-14.5)
[2018-03-30] MEDS: ondansetron/PF 4mg/2ml inj IV PRN (15:12)
[2018-03-30 17:38] LABS: CLARITY,URINE CLOUDY (Clear); COLOR,URINE YELLOW (Yellow); GLUCOSE, URINE 500 mg/dl (Neg); KETONES,URINE NEGATIVE (Neg); LEUKOCYTE ESTERASE ,URINE NEGATIVE (Neg); NITRITES, URINE NEGATIVE (Neg); OCCULT BLOOD,URINE MODERATE (Neg); PROTEIN,URINE >=300 mg/dl (Neg); UROBILINOGEN,URINE 0.2 E.U/dL (0.2-1.0)
[2018-03-30 17:40] LABS: UA COLLECTION TYPE NON-SPECIFIED
[2018-03-30 17:46] LABS: BACTERIA,URINE NONE SEEN /HPF (Neg); MUCUS STRANDS FEW /LPF (Neg); RBC,URINE 0-2 /HPF (0-2); SQUAMOUS EPITHELIAL CELL,UR NONE SEEN /LPF (FEW); WBC,URINE 0-4 /HPF (0-4)
[2018-03-30 17:47] LABS: AMORPHOUS URATES 1+; HYALINE CASTS 0-3 /LPF (NEGATIVE); WAXY CASTS,URINE 0-3 /LPF (NEGATIVE)
[2018-03-30] MEDS ORDERED: fat emulsion IV 100 ML, MVI, adult No.4 with vit. K 5 ML, Trace element-5 inj. 0.5 ML i... IV SCH ×4 (18:00)
[2018-03-30] MEDS: fat emulsion IV 100 ML, MVI, adult No.4 with vit. K 10 ML, Trace element-5 inj. 1 ML in... IV SCH ×4 (18:09)
[2018-03-30 18:20] LABS: UA EOSINOPHILS NO EOS /HPF
[2018-03-30 18:50] VITALS: BP 133/76
[2018-03-30] MEDS: insulin glargine (Lantus) pen - multi-dose SQ SCH (21:09)
[2018-03-31] MEDS: normal saline 1000ml 1,000 ML IV SCH ×3 (00:08→19:30)
[2018-03-31] MEDS: morphine/NS 5 mg/ml CADD 50 ML IV SCH ×12 (01:00→23:00)
[2018-03-31 07:00] VITALS: BP 162/73
[2018-03-31 07:59] LABS: BASOPHILS # (AUTO) 0.2 X10'3 (0-0.2); BASOPHILS % (AUTO) 0.9 % (0-1); EOSINOPHILS # (AUTO) 0.2 X10'3 (0-0.9); EOSINOPHILS % (AUTO) 1.1 % (0-6); HEMATOCRIT 26.8 % (35.0-45.0); LYMPHOCYTES # (AUTO) 0.7 X10'3 (1.1-4.8); LYMPHOCYTES % (AUTO) 3.5 % (21-51); MEAN CORPUSCULAR HEMOGLOBIN 29.7 PG (27.0-31.0); MEAN CORPUSCULAR HGB CONC 33.5 % (33.0-36.5); MEAN CORPUSCULAR VOLUME 88.4 FL (78-98); MEAN PLATELET VOLUME 7.2 FL (7.4-10.4); MONOCYTES # (AUTO) 0.9 X10'3 (0-0.9); MONOCYTES % (AUTO) 4.3 % (2-12); NEUTROPHILS # (AUTO) 18.4 X10'3 (1.8-7.7); NEUTROPHILS % (AUTO) 90.2 % (42-75); PLATELET COUNT 287 X10'3 (140-440); RED BLOOD COUNT 3.03 X10'6 (4.20-5.60); RED CELL DISTRIBUTION WIDTH 13.9 % (11.5-14.5); WHITE BLOOD COUNT 20.4 X10'3 (4.5-11.0)
[2018-03-31] MEDS: K and/or MAG REPLACEMENT MC SCH (08:00)
[2018-03-31 08:34] LABS: ALANINE AMINOTRANSFERASE 14 U/L (12-78); ALBUMIN 1.4 G/DL (3.4-5.0); ALBUMIN/GLOBULIN RATIO 0.4 (1.1-1.5); ALKALINE PHOSPHATASE 69 IU/L (46-116); ANION GAP 13 (8-16); ASPARTATE AMINO TRANSFERASE 16 U/L (10-37); BILIRUBIN,TOTAL 0.2 MG/DL (0.1-1.0); BLOOD UREA NITROGEN 51 MG/DL (7-18); BUN/CREATININE RATIO 12.6 (6.6-38.0); CHLORIDE 110 MMOL/L (99-107); CREATININE 4.04 MG/DL (0.40-0.90); GLUCOSE 210 MG/DL (70-104); MAGNESIUM 1.7 MG/DL (1.5-2.4); PHOSPHORUS 5.9 MG/DL (2.3-4.5); POTASSIUM 4.7 MMOL/L (3.5-5.1); PREALBUMIN 9.5 MG/DL (19-36); SODIUM 140 MMOL/L (135-145); TOTAL PROTEIN 5.2 G/DL (6.4-8.2); TRIGLYCERIDES 99 MG/DL (20-135); eGFR 12 ML/MIN
[2018-03-31] MEDS: insulin regular, human vial - multi-dose SQ SCH ×3 (09:11→20:53)
[2018-03-31 11:00] VITALS: BP 150/88
[2018-03-31] MEDS ORDERED: cefepime 2gm inj IV SCH (18:50)
[2018-03-31] MEDS ORDERED: cefepime inj. 1 GM in normal saline 100ml IV soln 100 ML IV SCH (19:00)
[2018-03-31] MEDS ORDERED: cefepime 1GM/100ML NS ADD-VANTAGE BAG IV SCH (19:00)
[2018-03-31] MEDS: fat emulsion IV 100 ML, MVI, adult No.4 with vit. K 10 ML, Trace element-5 inj. 1 ML in... IV SCH ×4 (19:52)
[2018-03-31] MEDS: diatr meglu/diatrizoate 30ml oral sol.-(3 dose) bottle PO SCH (21:00)
[2018-03-31] MEDS: insulin glargine (Lantus) pen - multi-dose SQ SCH (21:48)
[2018-03-31] MEDS: hydrALAZINE 20mg/ml inj. IV PRN (23:32)
[2018-04-01] MEDS: morphine/NS 5 mg/ml CADD 50 ML IV SCH ×7 (01:00→13:00)
[2018-04-01] MEDS: insulin regular, human vial - multi-dose SQ SCH ×3 (02:35→13:51)
[2018-04-01 03:07] LABS: BASOPHILS % (AUTO) 0 % (0-1); EOSINOPHILS % (AUTO) 0.2 % (0-6); HEMATOCRIT 25.4 % (35.0-45.0); HEMOGLOBIN 8.6 g/dl (12.0-16.0); LYMPHOCYTES # (AUTO) 0.4 X10'3 (1.1-4.8); LYMPHOCYTES % (AUTO) 2.6 % (21-51); MEAN CORPUSCULAR HGB CONC 33.8 % (33.0-36.5); MEAN CORPUSCULAR VOLUME 88.9 FL (78-98); MONOCYTES # (AUTO) 0.6 X10'3 (0-0.9); NEUTROPHILS # (AUTO) 13.7 X10'3 (1.8-7.7); NEUTROPHILS % (AUTO) 93.2 % (42-75); PLATELET COUNT 237 X10'3 (140-440); RED BLOOD COUNT 2.86 X10'6 (4.20-5.60); RED CELL DISTRIBUTION WIDTH 13.7 % (11.5-14.5); WHITE BLOOD COUNT 14.7 X10'3 (4.5-11.0)
[2018-04-01] MEDS ORDERED: furosemide 40mg/4ml inj IV ONE ×2 (03:10→04:30)
[2018-04-01] MEDS: normal saline 1000ml 1,000 ML IV SCH (03:24)
[2018-04-01 03:26] LABS: ALANINE AMINOTRANSFERASE 12 U/L (12-78); ALBUMIN 1.4 G/DL (3.4-5.0); ALBUMIN/GLOBULIN RATIO 0.4 (1.1-1.5); ALKALINE PHOSPHATASE 92 IU/L (46-116); ANION GAP 14 (8-16); ASPARTATE AMINO TRANSFERASE 9 U/L (10-37); BILIRUBIN,TOTAL 0.2 MG/DL (0.1-1.0); BLOOD UREA NITROGEN 67 MG/DL (7-18); BUN/CREATININE RATIO 17.2 (6.6-38.0); CALCIUM 7.7 MG/DL (8.5-10.1); CHLORIDE 107 MMOL/L (99-107); GLUCOSE 382 MG/DL (70-104); MAGNESIUM 1.7 MG/DL (1.5-2.4); PHOSPHORUS 3.6 MG/DL (2.3-4.5); POTASSIUM 4.4 MMOL/L (3.5-5.1); SODIUM 135 MMOL/L (135-145); TOTAL PROTEIN 5.4 G/DL (6.4-8.2); eGFR 12 ML/MIN
[2018-04-01 03:31] LABS: ABG BASE EXCESS -14.1 mmol/L (-2.0-3.0); ABG HCO3 12.7 mmol/L (22.0-26.0); ABG OXYGEN SATURATION 92.4 % (95-98); ABG PCO2 (T) 32.7 mmHg (32.0-45.0); ABG PH (T) 7.206 (7.350-7.450); ABG PO2 (T) 65.9 mmHg (83-108); ALLEN'S TEST Positive; FCOHb 0.3 % (0.5-1.5); FLOW 3 L/min; FMetHb 0.2 % (0.3-1.12); FO2Hb 91.9 % (94-100); RESPIRATORY RATE (OBSERVED) 24 b/min; TOTAL HEMOGLOBIN 9.3 G/dl (12.0-16.0)
[2018-04-01 04:00] VITALS: BP 185/93
[2018-04-01] MEDS: hydrALAZINE 20mg/ml inj. IV PRN (04:06)
[2018-04-01] MEDS ORDERED: albuterol 2.5 MG/3 ML nebule NEB PRN (04:30)
[2018-04-01] MEDS: diatr meglu/diatrizoate 30ml oral sol.-(3 dose) bottle PO SCH (07:00)
[2018-04-01 07:34] VITALS: BP 161/69
[2018-04-01] MEDS: K and/or MAG REPLACEMENT MC SCH (08:00)
[2018-04-01 09:15] VITALS: BP 107/92
[2018-04-01 10:00] VITALS: BP 163/112
[2018-04-01 11:00] VITALS: BP 185/90
[2018-04-01 11:11] LABS: ABG BASE EXCESS -14.8 mmol/L (-2.0-3.0); ABG HCO3 12.1 mmol/L (22.0-26.0); ABG OXYGEN SATURATION 92.4 % (95-98); ABG PCO2 (T) 34.2 mmHg (32.0-45.0); ABG PH (T) 7.174 (7.350-7.450); ABG PO2 (T) 75.1 mmHg (83-108); ALLEN'S TEST Positive; FCOHb 0.3 % (0.5-1.5); FLOW 3 L/min; FMetHb 0.1 % (0.3-1.12); PATIENT TEMPERATURE 38.4; TOTAL HEMOGLOBIN 9.9 G/dl (12.0-16.0)
[2018-04-01] MEDS ORDERED: sodium bicarbonate (8.4%) inj. 50 MEQ in sodium chloride 0.45% 1,000 ML IV SCH (11:15)
[2018-04-01] MEDS ORDERED: sodium bicarbonate (8.4%) 1 mEq/ml syringe IV ONE (11:15)
[2018-04-01] MEDS ORDERED: midazolam 2 mg/2 ml injection IV PRN (12:55)
[2018-04-01] MEDS ORDERED: fentaNYL/PF 50MCG/1 ML 2ML syringe IV PRN (12:55)
[2018-04-01 13:26] LABS: ABG BASE EXCESS -13.6 mmol/L (-2.0-3.0); ABG HCO3 13.8 mmol/L (22.0-26.0); ABG OXYGEN SATURATION 91.5 % (95-98); ABG PCO2 (T) 39.8 mmHg (32.0-45.0); ABG PH (T) 7.165 (7.350-7.450); ABG PO2 (T) 70.9 mmHg (83-108); ALLEN'S TEST Positive; FCOHb 0.3 % (0.5-1.5); FLOW 3 L/min; FMetHb 0.1 % (0.3-1.12); FO2Hb 91.1 % (94-100); TOTAL HEMOGLOBIN 9.1 G/dl (12.0-16.0)
[2018-04-01 14:00] VITALS: BP 155/63
[2018-04-01] MEDS ORDERED: LIDOcaine 0.5% (5mg/ml) 50ml vial ONE (14:02)
[2018-04-01] MEDS ORDERED: morphine 4 MG/ML inj SYRINge IV PRN (14:30)
[2018-04-01] MEDS ORDERED: LORazepam 2 mg/ml vial IV PRN (14:30)
== END 2018-04-01 21:38 | disposition expired | DRG 221 ==
LOC: ER 00:43 → ED HOLD 04:25 → ORTHO 4S 05:25 → SUR 3N 15:15 → UNDODISIN 16:21 → ICU 2S 19:47 → MED 3N 03-29 17:31 → ICU 2S 04-01 08:03
PROVIDERS: ADMIT Internal Medicine; ATTEND Internal Medicine Critical Care Medicine
PROC: 0D1B0Z4 Bypass Ileum to Cutaneous, Open Approach (ICD-10-PCS; 2018-03-28)
PROC: 0DNW0ZZ Release Peritoneum, Open Approach (ICD-10-PCS; 2018-03-28)
PROC: 0DBB0ZZ Excision of Ileum, Open Approach (ICD-10-PCS; principal; 2018-03-28 17:11)
PROC: 3E0436Z Introduction of Nutritional Substance into Central Vein, Percutaneous Approach (ICD-10-PCS; 2018-03-29)
DX: C78.4 Secondary malignant neoplasm of small intestine (principal); R65.21 Severe sepsis with septic shock; J96.90 Respiratory failure, unspecified, unspecified whether with hypoxia or hypercapnia; A41.9 Sepsis, unspecified organism; G93.40 Encephalopathy, unspecified; N17.9 Acute kidney failure, unspecified; C78.6 Secondary malignant neoplasm of retroperitoneum and peritoneum; N18.3 Chronic kidney disease, stage 3 (moderate); Z98.51 Tubal ligation status; K56.609 Unspecified intestinal obstruction, unspecified as to partial versus complete obstruction; C80.1 Malignant (primary) neoplasm, unspecified; C56.9 Malignant neoplasm of unspecified ovary; E11.22 Type 2 diabetes mellitus with diabetic chronic kidney disease; E11.42 Type 2 diabetes mellitus with diabetic polyneuropathy; E11.65 Type 2 diabetes mellitus with hyperglycemia; J45.909 Unspecified asthma, uncomplicated; E83.39 Other disorders of phosphorus metabolism; E78.00 Pure hypercholesterolemia, unspecified; F17.210 Nicotine dependence, cigarettes, uncomplicated; I12.9 Hypertensive chronic kidney disease with stage 1 through stage 4 chronic kidney disease, or unspecified chronic kidney disease; Z66 Do not resuscitate; I25.10 Atherosclerotic heart disease of native coronary artery without angina pectoris; N73.6 Female pelvic peritoneal adhesions (postinfective); Z51.5 Encounter for palliative care; Z79.4 Long term (current) use of insulin; Z90.710 Acquired absence of both cervix and uterus; Z88.0 Allergy status to penicillin; Z83.3 Family history of diabetes mellitus; Z82.5 Family history of asthma and other chronic lower respiratory diseases; Z79.899 Other long term (current) drug therapy
CPT/HCPCS: 36415; 36600; 71045; 74176; 76705; 80053; 81001; 82570; 82803; 82948; 83036; 83605; 83690; 83735; 83880; 84100; 84134; 84145; 84300; 84478; 85018; 85025; 85610; 85730; 87040; 87070; 87075; 87077; 87088; 87102; 87186; 87207; 93005; 94760; 96361; 96374; 96375; 97161; 97530; 99285; A4421; A6213; A6253; A6255; A6257; A6258; A6446; A6449; A7000; C1751; C1758; J0360; J0692; J0694; J0780; J1644; J1815; J1940; J2001; J2270; J2405; J2704; J2710; J2765; J3010; J3490; J7030; J7042; J7120